=== PATIENT | male | born 1975 | race Caucasian/White ===

== ENCOUNTER 2018-03-29 18:27 | Inpatient (IN) | payer OTHER ==
--- NOTE | 2018-03-29 19:24 | HP ---
"CIWA Score - CIWA Score Nausea/Vomitin-No Nausea/No Vomiting Muscle Tremors: 4-Moderate,w/Arms Extend Anxiety: 1-Mildly Anxious Agitation: 4-Moderately Restless Paroxysmal Sweats: 1-Minimal Palms Moist Orientation: 0-Oriented Tacttile Disturbances: 0-None Auditory Disturbances: 0-None Visual Disturbances: 0-None Headache: 0-None Present CIWA-Ar Total Score: 10 Admission ROS S - HPI Chief Complaint: Here for detox alcohol. Allergies/Adverse Reactions: Allergies Allergy/AdvReac Type Severity Reaction Status Date / Time fluphenazine [From Prolixin] Allergy Severe Difficulty Verified 12/03/17 16:49 Breathing haloperidol [From Haldol] Allergy Severe Difficulty Verified 12/03/17 16:49 Breathing risperidone [From Risperdal] Allergy Severe Difficulty Verified 12/03/17 16:49 Breathing ziprasidone [From Geodon] Allergy Severe Difficulty Verified 12/03/17 16:49 Breathing History of Present Illness: Alcohol use began at age 13. Marijuana use began at age 13. Cocaine use began at age 22. K2 use began at age 38. Nicotine use at age 13. Denies hx seizures. overdose. (+) hx blackouts. Longest length of sobriety 100 days. Hx: DM - on meds, Hx: HTN - on meds. States mental health problems and is on medications. States being f/u by psychiatry at long-term. Search Terms: Alo Connell, 1975 Search Date: 03/29/2018 07:14:41 PM The Drug Utilization Report below displays all of the controlled substance prescriptions, if any, that your patient has filled in the last twelve months. The information displayed on this report is compiled from pharmacy submissions to the Department, and accurately reflects the information as submitted by the pharmacies. This report was requested by: Martina Yun | Reference #: [id number] There are no results for the search terms that you entered. Exam Limitations: No Limitations - Ebola screening Have you traveled outside of the country in the last 21 days: No (N) Have you had contact with anyone from an Ebola affected area: No Have you been sick,other than usual withdrawal symptoms: No Do you have a fever: No - Review of Systems Constitutional: Changes in sleep (Difficulty falling asleep) EENT: reports: Blurred Vision (Does nopt wear glasses), Hearing Loss (States 65 % hearing loss in (R) ear. Does not use a hearing aid.), Dental Problems ( Missing, broken, and decayed teeth. Able to chew and swallow.) Respiratory: reports: No Symptoms reported Cardiac: reports: No Symptoms Reported GI: reports: No Symptoms Reported : reports: Frequency (3-4 x/ night urination) Musculoskeletal: reports: No Symptoms Reported Integumentary: reports: No Symptoms Reported Neuro: reports: Tremors Endocrine: reports: No Symptoms Reported, Other (States has DM) Hematology: reports: No Symptoms Reported Psychiatric: reports: Judgement Intact, Orientated x3, Agitated, Anxious, Depressed (Denies thoughts of harming self or others.), other (States hx auditory hallucinations (AH) which tell him to hurt self and not to sleep. Denies AH at this time. Does not know what triggers AH. Last experienced 1 month ago and went to hospital.) Patient History - Patient Medical History Hx Anemia: No Hx Asthma: No Hx Chronic Obstructive Pulmonary Disease (COPD): No Hx Cancer: No Hx Cardiac Disorders: No Hx Congestive Heart Failure: No Hx Hypertension: Yes Hx Hypercholesterolemia: No Hx Pacemaker: No HX Cerebrovascular Accident: No Hx Seizures: No Hx Dementia: No Hx Diabetes: Yes Hx Gastrointestinal Disorders: No Hx Liver Disease: No Hx Genitourinary Disorders: No Hx Sexually Transmitted Disorders: No Hx Renal Disease (ESRD): No Hx Thyroid Disease: No Hx Human Immunodeficiency Virus (HIV): No Hx Hepatitis C: No Hx Depression: Yes Hx Suicide Attempt: No Hx Bipolar Disorder: No Hx Schizophrenia: No - Patient Surgical History Past Surgical History: Yes Hx Neurologic Surgery: No Hx Cataract Extraction: No Hx Cardiac Surgery: No Hx Lung Surgery: Yes (tracheotomy in 2007) Hx Breast Surgery: No Hx Breast Biopsy: No Hx Abdominal Surgery: No Hx Appendectomy: No Hx Cholecystectomy: No Hx Genitourinary Surgery: No Hx Orthopedic Surgery: No Anesthesia Reaction: No - PPD History Previous Implant?: Yes Documented Results: Negative w/proof Implanted On Prior [facility] Admission?: Yes Date: 12/05/17 PPD to be Administered?: No - Smoking Cessation Smoking history: Current every day smoker Have you smoked in the past 12 months: Yes Aproximately how many cigarettes per day: 10 Hx Chewing Tobacco Use: No Initiated information on smoking cessation: Yes 'Breaking Loose' booklet given: 03/29/18 - Substance & Tx. History Hx Alcohol Use: Yes Hx Substance Use: Yes Substance Use Type: Alcohol, Cocaine, Marijuana, Tranquilizers (K2) Hx Substance Use Treatment: Yes (detox, rehab) Admission Physical Exam S - Physical General Appearance: Yes: Mild Distress, Tremorous, Sweating (Facial moisture), Anxious HEENTM: Yes: EOMI, Hearing grossly Normal, KARLA, Other (Decayed and missing teeth. Dry lips and oral mucous membranes.) Respiratory: Yes: Chest Non-Tender, Lungs Clear, Normal Breath Sounds Neck: Yes: No masses,lesions,Nodules, Supple Breast: Yes: Breast Exam Deferred Cardiology: Yes: Regular Rhythm, Regular Rate, S1, S2, Other (Recent EKG at [facility] on 12/03/17 shows NSR. Will not repeat EKG. 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 NML intact, Fully Oriented, Alert, Motor Strength 5/5, Normal Mood/Affect Integumentary: Yes: Normal Color, Dry (Decreased skin turgor.), Warm Lymphatic: Yes: Within Normal Limits - Diagnostic (1) Type 2 diabetes mellitus without complications Current Visit: Yes Status: Acute Qualifiers: Diabetes mellitus medical terminologist insulin use: with fci use Qualified Code( s): E11.9 - Type 2 diabetes mellitus without complications; Z79.4 - retirement ( current) use of insulin (2) Cannabis dependence Current Visit: Yes Status: Chronic (3) HTN (hypertension) Current Visit: Yes Status: Chronic Qualifiers: Hypertension type: essential hypertension Qualified Code(s): I10 - Essential (primary) hypertension (4) Nicotine dependence Current Visit: Yes Status: Chronic Qualifiers: Nicotine product type: cigarettes Substance use status: uncomplicated Qualified Code(s): F17.210 - Nicotine dependence, cigarettes, uncomplicated (5) Poor dentition Current Visit: Yes Status: Chronic (6) Nocturia Current Visit: Yes Status: Chronic (7) Dehydration Current Visit: Yes Status: Acute Cleared for Admission [facility] - Detox or Rehab [facility] Level of Care: Medically Supervised Detox Regimen/Protocol: Librium S Breath Alcohol Content Breath Alcohol Content: 0"
[2018-03-29] MEDS ORDERED: MENTHOL/PHENOL 1 EACH UD MM PRN (19:48)
[2018-03-29] MEDS ORDERED: MAGNESIUM HYDROX 2400MG/30ML ORAL SUSPENSION 30 ML CUP PO PRN (19:48)
[2018-03-29] MEDS ORDERED: ACETAMINOPHEN 325 MG TABLET (FP) PO PRN (19:48)
[2018-03-29] MEDS ORDERED: chlordiazePOXIDE HCL 25 MG CAPSULE PO ONE (19:48)
[2018-03-29] MEDS ORDERED: LOPERAMIDE HCL 2 MG CAPSULE PO PRN (19:48)
[2018-03-29] MEDS ORDERED: MAGNESIUM CITRATE 300 ML BOTTLE PO PRN (19:48)
[2018-03-29] MEDS ORDERED: MAG HYDROX/AL HYDROX/SIMETH 30 ML UNIT-DOSE CUP PO PRN (19:48)
[2018-03-29] MEDS ORDERED: chlordiazePOXIDE HCL 25 MG CAPSULE PO PRN (19:48)
[2018-03-29] MEDS ORDERED: IBUPROFEN 400 MG TABLET (FP) PO PRN (19:48)
[2018-03-29 21:16] VITALS: BMI 23.9
[2018-03-29] MEDS: THIAMINE HCL 100 MG TABLET (FP) PO SCH (21:50)
[2018-03-29] MEDS: chlordiazePOXIDE HCL 25 MG CAPSULE PO SCH (22:00)
[2018-03-30 01:20] LABS: URINE APPEARANCE CLEAR; URINE BILIRUBIN NEGATIVE (<2.0 mg/dL); URINE COLOR LTYELLOW; URINE GLUCOSE (UA) NEGATIVE (NEGATIVE); URINE KETONE 2+ (NEGATIVE); URINE LEUK ESTERASE NEGATIVE (NEGATIVE); URINE NITRITE NEGATIVE (NEGATIVE); URINE PROTEIN NEGATIVE (NEGATIVE); URINE UROBILINOGEN NEGATIVE mg/dL (0.2-1.0)
[2018-03-30] MEDS: chlordiazePOXIDE HCL 25 MG CAPSULE PO SCH ×4 (05:03→22:22)
[2018-03-30] MEDS: NICOTINE POLACRILEX 2 MG GUM BC PRN ×2 (05:05→12:58)
[2018-03-30] MEDS: NICOTINE 14 MG/24 HOURS TOPICAL PATCH TD SCH (10:05)
[2018-03-30] MEDS: PRENATAL VITAMINS W/ FOLIC ACID TABLET (FP) PO SCH (10:05)
[2018-03-30 10:10] LABS: HEMATOCRIT 36.8 % (35.4-49); HEMOGLOBIN 12.1 GM/dL (11.7-16.9); MCH 27.9 pg (25.7-33.7); MCHC 32.9 g/dl (32.0-35.9); MEAN CELL VOLUME 84.7 fl (80-96); MEAN PLT VOLUME 7.4 fl (7.5-11.1); PLATELET COUNT 198 K/MM3 (134-434); RBC 4.35 M/mm3 (4.00-5.60); WHITE BLOOD COUNT 3.8 K/mm3 (4.0-10.0)
[2018-03-30 10:45] LABS: ALBUMIN 3.4 g/dl (3.4-5.0); ALK PHOS 108 U/L (45-117); ANION GAP 12 MMOL/L (8-16); BILIRUBIN,TOTAL 0.4 mg/dL (0.2-1); BLOOD UREA NITROGEN 11 mg/dL (7-18); CALCIUM 8.3 mg/dL (8.5-10.1); CHLORIDE 99 mmol/L (98-107); CO2 25 mmol/L (21-32); CREATININE 0.7 mg/dL (0.55-1.3); POTASSIUM 4.6 mmol/L (3.5-5.1); SGOT/AST 14 U/L (15-37); SGPT/ALT 71 U/L (13-61); SODIUM 135 mmol/L (136-145); TOT PROT 6.8 g/dl (6.4-8.2)
[2018-03-30 10:53] LABS: GLUCOSE,RANDOM 345 mg/dL (74-106)
[2018-03-30] MEDS ORDERED: INSULIN (NOVOLOG) ASPART 100 UNITS/ML 10ML VIAL ONE ×2 (11:41→17:08)
[2018-03-30] MEDS: INSULIN (LEVEMIR) 100 UNITS/ML UNITS SQ SCH ×2 (11:44→22:22)
[2018-03-30] MEDS: INSULIN SLIDING SCALE (NOVOLOG) 1 VIAL SQ SCH ×2 (11:45→17:53)
--- NOTE | 2018-03-30 12:19 | PN ---
[facility] CIWA - CIWA Score Nausea/Vomitin Muscle Tremors: 4-Moderate,w/Arms Extend Anxiety: 4-Mod. Anxious/Guarded Agitation: 3 Paroxysmal Sweats: 3 Orientation: 0-Oriented Tacttile Disturbances: 0-None Auditory Disturbances: 0-None Visual Disturbances: 0-None Headache: 0-None Present CIWA-Ar Total Score: 17 S Progress Note (SOAP) Subjective: Tremor, chills, sweating Objective: 03/30/18 12:14 Last Vital Signs Temp Pulse Resp BP Pulse Ox 97.6 F 83 18 102/59 L 03/30/18 09:07 03/30/18 09:07 03/30/18 09:07 03/30/18 09:07 Laboratory Tests 03/29/18 03/30/18 03/30/18 22:49 05:03 07:00 WBC 3.8 L RBC 4.35 Hgb 12.1 Hct 36.8 MCV 84.7 MCH 27.9 MCHC 32.9 RDW 14.0 Plt Count 198 MPV 7.4 L Sodium Potassium Chloride Carbon Dioxide Anion Gap BUN Creatinine Creat Clearance w eGFR POC Glucometer 277 Random Glucose Calcium Total Bilirubin AST ALT Alkaline Phosphatase Total Protein Albumin Urine Color Ltyellow Urine Appearance Clear Urine pH 5.0 Ur Specific [place] 1.011 Urine Protein Negative Urine Glucose (UA) Negative Urine Ketones 2+ H Urine Blood Negative Urine Nitrite Negative Urine Bilirubin Negative Urine Urobilinogen Negative Ur Leukocyte Esterase Negative RPR Titer HIV 1&2 Antibody Screen HIV P24 Antigen 03/30/18 03/30/18 03/30/18 07:00 07:00 07:00 WBC RBC Hgb Hct MCV MCH MCHC RDW Plt Count MPV Sodium 135 L Potassium 4.6 Chloride 99 Carbon Dioxide 25 Anion Gap 12 BUN 11 Creatinine 0.7 Creat Clearance w eGFR > 60 POC Glucometer Random Glucose 345 H* Calcium 8.3 L Total Bilirubin 0.4 AST 14 L ALT 71 H Alkaline Phosphatase 108 Total Protein 6.8 Albumin 3.4 Urine Color Urine Appearance Urine pH Ur Specific [place] Urine Protein Urine Glucose (UA) Urine Ketones Urine Blood Urine Nitrite Urine Bilirubin Urine Urobilinogen Ur Leukocyte Esterase RPR Titer Nonreactive HIV 1&2 Antibody Screen Negative HIV P24 Antigen Negative Labs reviewed: serum glucose 345mg/dl due to DM Assessment: 03/30/18 12:17 Withdrawal symptoms Noted with hyperglycemia Plan: Continue detox Encouraged PO water intake Hyperglycemia secondary to DMT2: resume home regimen (lantus 30 units sq bid: will give levemir instead of lantus as lantus not available; metformin 1g PO bid , start novolog insulin sliding scale with coverage. Consider decreasing levemir dosages if warranted. Do not resume lisinopril 40mg PO daily as patient has low normal b/p at this time.
--- NOTE | 2018-03-30 16:50 | CONSULT ---
[facility] Psychiatric Consult - Data Date of interview: 03/30/18 Admission source: [facility] Identifying data: Readmission to [facility] for this 42 y/o male seeking detoxification treatment, on , for alcohol, cocaine, cannabis (K2 ) dependence. Patient is single, a father of one homeless (care home), unemployed and supported on SSD benefits. Substance Abuse History: Mr Connell reports that he " uses them all ", a reference to K2 marihuana, alcohol and cocaine. As per [facility] report : Smoking history: Current every day smoker. Have you smoked in the past 12 months: Yes. Aproximately how many cigarettes per day: 10. Hx Chewing Tobacco Use: No. Initiated information on smoking cessation: Yes. 'Breaking Loose' booklet given : 03/29/18. - Substance & Tx. History. Hx Alcohol Use: Yes. Hx Substance Use : Yes. Substance Use Type: Alcohol, Cocaine, Marijuana, Tranquilizers (K2). Hx Substance Use Treatment: Yes (detox, rehab) Medical History: Diabetes mellitus, hypertension and a history of tracheostomy in 2007 (reason not disclosed). Psychiatric History: Patient endorses a history of multiple psychiatric hospitalizations since his first psychiatric meltdown at age 28 (hospitalized at a facility in [place], [place] for auditory hallucinations + paranoid delusions). Diagnosed, at the time, with Paranoid Schizophrenia and medicated with aripriprazole + cogentin. Mr Connell is known to several institutions ([facility], [facility], [facility], [facility], [facility], [facility], [facility]). Discharged, in August 2017, from [facility] on a regimen of abilify 20 mg/day + cogentin 1 mg/bid. Referred to [facility]. NO SHOW. Patient ignored his appointment. Admits to a preference for CPEP visits for medications refills at times of crisis. No reported history of suicide attempts. Physical/Sexual Abuse/Trauma History: Patient declines to discuss this domain. Additional Comment: No toxicology available. Mental Status Exam - Mental Status Exam Alert and Oriented to: Time, Place, Person Cognitive Function: Good Patient Appearance: Well Groomed Mood: Nervous, Withdrawn Affect: Blunted Patient Behavior: Fatigued, Cooperative Speech Pattern: Clear Voice Loudness: Normal Thought Process: Goal Oriented Thought Disorder: Bizarre Hallucinations: Denies Suicidal Ideation: Denies Homicidal Ideation: Denies Insight/Judgement: Poor Sleep: Well (as per self report) Appetite: Good Muscle strength/Tone: Normal Gait/Station: Normal Psychiatric Findings - Problem List ([place] 1, 2,3) (1) Alcohol dependence Current Visit: Yes Status: Acute Qualifiers: Substance use status: uncomplicated Qualified Code(s): F10.20 - Alcohol dependence, uncomplicated (2) Marijuana dependence Current Visit: Yes Status: Chronic Comment: According to self report. No toxicology available. (3) Nicotine dependence Current Visit: Yes Status: Acute Qualifiers: Nicotine product type: cigarettes Substance use status: uncomplicated Qualified Code(s): F17.210 - Nicotine dependence, cigarettes, uncomplicated (4) Substance induced mood disorder Current Visit: Yes Status: Acute (5) Paranoid schizophrenia Current Visit: Yes Status: Chronic - Initial Treatment Plan Initial Treatment Plan: Psychoeducation. Sleep hygiene. Detoxification. AA fellowship recommended. Psychotherapy (individual, supportive, cognitive/ behavioral). Patient is made aware of the option of naltrexone for relapse prevention. Verbalizes no interest for that intervention. Will resume medications as follows : abilify 10 mg po daily + cogentin 0.5 mg po bid + trazodone 50 mg po hs. Side effects/benefits of each of these drugs are discussed with the patient. Made aware, in particular, of the risk of priapism ( trazodone), anticholinergic manifestations (dry mouth, urinary retention, blurred vision, constipation) usually associated with cogentin and cardiovascular adverse events, CVA (abilify). Mr Connell declares that these medications have proven themselves effective in the management of his mental disorder (schizophrenia) and he insists for their inclusion in the current regime of treatment. 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
[2018-03-30] MEDS: metFORMIN HCL 500 MG TABLET (FP) PO SCH (17:52)
[2018-03-30] MEDS: traZODone HCL 50 MG TABLET (FP) PO SCH (22:22)
[2018-03-30] MEDS: THIAMINE HCL 100 MG TABLET (FP) PO SCH (22:22)
[2018-03-30] MEDS: BENZTROPINE MESYLATE 1 MG TABLET (FP) PO SCH (22:24)
[2018-03-31] MEDS: NICOTINE POLACRILEX 2 MG GUM BC PRN ×6 (02:21→17:31)
[2018-03-31] MEDS: chlordiazePOXIDE HCL 25 MG CAPSULE PO SCH ×3 (05:28→17:51)
[2018-03-31] MEDS: metFORMIN HCL 500 MG TABLET (FP) PO SCH ×2 (06:07→17:52)
[2018-03-31] MEDS ORDERED: INSULIN (NOVOLOG) ASPART 100 UNITS/ML 10ML VIAL ONE ×3 (07:47→16:55)
[2018-03-31] MEDS: INSULIN SLIDING SCALE (NOVOLOG) 1 VIAL SQ SCH ×3 (07:51→17:52)
--- NOTE | 2018-03-31 09:47 | PN ---
[facility] CIWA - CIWA Score Nausea/Vomitin-No Nausea/No Vomiting Muscle Tremors: None Anxiety: 4-Mod. Anxious/Guarded Agitation: 4-Moderately Restless Paroxysmal Sweats: 2 Orientation: 0-Oriented Tacttile Disturbances: 0-None Auditory Disturbances: 0-None Visual Disturbances: 0-None Headache: 0-None Present CIWA-Ar Total Score: 10 [facility] Progress Note (SOAP) Subjective: PATIENT C/O ANXIETY, RESTLESSNESS AND SWEATING. Objective: 03/31/18 09:46 Vital Signs Temperature 97.1 F L 03/31/18 09:04 Pulse Rate 116 H 03/31/18 09:04 Respiratory Rate 20 03/31/18 09:04 Blood Pressure 121/76 03/31/18 09:04 O2 Sat by Pulse Oximetry (%) Laboratory Tests 03/29/18 03/30/18 03/30/18 22:49 05:03 07:00 WBC 3.8 L RBC 4.35 Hgb 12.1 Hct 36.8 MCV 84.7 MCH 27.9 MCHC 32.9 RDW 14.0 Plt Count 198 MPV 7.4 L Sodium Potassium Chloride Carbon Dioxide Anion Gap BUN Creatinine Creat Clearance w eGFR POC Glucometer 277 Random Glucose Calcium Total Bilirubin AST ALT Alkaline Phosphatase Total Protein Albumin Urine Color Ltyellow Urine Appearance Clear Urine pH 5.0 Ur Specific [place] 1.011 Urine Protein Negative Urine Glucose (UA) Negative Urine Ketones 2+ H Urine Blood Negative Urine Nitrite Negative Urine Bilirubin Negative Urine Urobilinogen Negative Ur Leukocyte Esterase Negative RPR Titer HIV 1&2 Antibody Screen HIV P24 Antigen 03/30/18 03/30/18 03/30/18 07:00 07:00 07:00 WBC RBC Hgb Hct MCV MCH MCHC RDW Plt Count MPV Sodium 135 L Potassium 4.6 Chloride 99 Carbon Dioxide 25 Anion Gap 12 BUN 11 Creatinine 0.7 Creat Clearance w eGFR > 60 POC Glucometer Random Glucose 345 H* Calcium 8.3 L Total Bilirubin 0.4 AST 14 L ALT 71 H Alkaline Phosphatase 108 Total Protein 6.8 Albumin 3.4 Urine Color Urine Appearance Urine pH Ur Specific [place] Urine Protein Urine Glucose (UA) Urine Ketones Urine Blood Urine Nitrite Urine Bilirubin Urine Urobilinogen Ur Leukocyte Esterase RPR Titer Nonreactive HIV 1&2 Antibody Screen Negative HIV P24 Antigen Negative 03/30/18 03/30/1818 11:17 16:11 21:11 WBC RBC Hgb Hct MCV MCH MCHC RDW Plt Count MPV Sodium Potassium Chloride Carbon Dioxide Anion Gap BUN Creatinine Creat Clearance w eGFR POC Glucometer 468 362 265 Random Glucose Calcium Total Bilirubin AST ALT Alkaline Phosphatase Total Protein Albumin Urine Color Urine Appearance Urine pH Ur Specific [place] Urine Protein Urine Glucose (UA) Urine Ketones Urine Blood Urine Nitrite Urine Bilirubin Urine Urobilinogen Ur Leukocyte Esterase RPR Titer HIV 1&2 Antibody Screen HIV P24 Antigen 03/31/18 05:29 WBC RBC Hgb Hct MCV MCH MCHC RDW Plt Count MPV Sodium Potassium Chloride Carbon Dioxide Anion Gap BUN Creatinine Creat Clearance w eGFR POC Glucometer 313 Random Glucose Calcium Total Bilirubin AST ALT Alkaline Phosphatase Total Protein Albumin Urine Color Urine Appearance Urine pH Ur Specific [place] Urine Protein Urine Glucose (UA) Urine Ketones Urine Blood Urine Nitrite Urine Bilirubin Urine Urobilinogen Ur Leukocyte Esterase RPR Titer HIV 1&2 Antibody Screen HIV P24 Antigen PE: SKIN WARM AND MOIST CAR S1S2 RESP CTA BL EXT FULL ROM, NO EDEMA ALERT AND ORIENTED X 3 Assessment: 03/31/18 09:47 WITHDRAWAL SX Plan: DETOX PER PROTOCOL ENCOURAGE ORAL FLUIDS CONTINUE TO MONITOR CLINICALLY
[2018-03-31] MEDS: BENZTROPINE MESYLATE 1 MG TABLET (FP) PO SCH ×2 (10:01→22:15)
[2018-03-31] MEDS: ARIPiprazole 10 MG TABLET PO SCH (10:01)
[2018-03-31] MEDS: PRENATAL VITAMINS W/ FOLIC ACID TABLET (FP) PO SCH (10:01)
[2018-03-31] MEDS: NICOTINE 14 MG/24 HOURS TOPICAL PATCH TD SCH (10:02)
[2018-03-31] MEDS: INSULIN (LEVEMIR) 100 UNITS/ML UNITS SQ SCH ×2 (10:38→22:37)
[2018-03-31] MEDS: chlordiazePOXIDE 5 MG CAPSULE PO SCH (22:15)
[2018-03-31] MEDS: THIAMINE HCL 100 MG TABLET (FP) PO SCH (22:15)
[2018-03-31] MEDS: traZODone HCL 50 MG TABLET (FP) PO SCH (22:16)
[2018-03-31] MEDS: MELATONIN 5 MG TABLETS PO PRN (22:18)
[2018-04-01] MEDS: NICOTINE POLACRILEX 2 MG GUM BC PRN ×3 (04:15→20:20)
[2018-04-01] MEDS: chlordiazePOXIDE 5 MG CAPSULE PO SCH ×3 (05:12→16:44)
[2018-04-01] MEDS: metFORMIN HCL 500 MG TABLET (FP) PO SCH ×2 (06:05→16:44)
[2018-04-01] MEDS: INSULIN SLIDING SCALE (NOVOLOG) 1 VIAL SQ SCH ×3 (06:58→16:45)
--- NOTE | 2018-04-01 09:57 | PN ---
[facility] Progress Note Note: Patient continues with detox regimen. States he feels well. Complain of mild anxiety. Laboratory Tests 03/29/18 03/30/18 03/30/18 22:49 05:03 07:00 WBC 3.8 L RBC 4.35 Hgb 12.1 Hct 36.8 MCV 84.7 MCH 27.9 MCHC 32.9 RDW 14.0 Plt Count 198 MPV 7.4 L Sodium Potassium Chloride Carbon Dioxide Anion Gap BUN Creatinine Creat Clearance w eGFR POC Glucometer 277 Random Glucose Calcium Total Bilirubin AST ALT Alkaline Phosphatase Total Protein Albumin Urine Color Ltyellow Urine Appearance Clear Urine pH 5.0 Ur Specific [place] 1.011 Urine Protein Negative Urine Glucose (UA) Negative Urine Ketones 2+ H Urine Blood Negative Urine Nitrite Negative Urine Bilirubin Negative Urine Urobilinogen Negative Ur Leukocyte Esterase Negative RPR Titer HIV 1&2 Antibody Screen HIV P24 Antigen 03/30/18 03/30/18 03/30/18 07:00 07:00 07:00 WBC RBC Hgb Hct MCV MCH MCHC RDW Plt Count MPV Sodium 135 L Potassium 4.6 Chloride 99 Carbon Dioxide 25 Anion Gap 12 BUN 11 Creatinine 0.7 Creat Clearance w eGFR > 60 POC Glucometer Random Glucose 345 H* Calcium 8.3 L Total Bilirubin 0.4 AST 14 L ALT 71 H Alkaline Phosphatase 108 Total Protein 6.8 Albumin 3.4 Urine Color Urine Appearance Urine pH Ur Specific [place] Urine Protein Urine Glucose (UA) Urine Ketones Urine Blood Urine Nitrite Urine Bilirubin Urine Urobilinogen Ur Leukocyte Esterase RPR Titer Nonreactive HIV 1&2 Antibody Screen Negative HIV P24 Antigen Negative 03/30/18 03/30/18 03/30/18 11:17 16:11 21:11 WBC RBC Hgb Hct MCV MCH MCHC RDW Plt Count MPV Sodium Potassium Chloride Carbon Dioxide Anion Gap BUN Creatinine Creat Clearance w eGFR POC Glucometer 468 362 265 Random Glucose Calcium Total Bilirubin AST ALT Alkaline Phosphatase Total Protein Albumin Urine Color Urine Appearance Urine pH Ur Specific [place] Urine Protein Urine Glucose (UA) Urine Ketones Urine Blood Urine Nitrite Urine Bilirubin Urine Urobilinogen Ur Leukocyte Esterase RPR Titer HIV 1&2 Antibody Screen HIV P24 Antigen 03/31/18 03/31/18 03/31/18 05:29 10:36 16:40 WBC RBC Hgb Hct MCV MCH MCHC RDW Plt Count MPV Sodium Potassium Chloride Carbon Dioxide Anion Gap BUN Creatinine Creat Clearance w eGFR POC Glucometer 313 356 268 Random Glucose Calcium Total Bilirubin AST ALT Alkaline Phosphatase Total Protein Albumin Urine Color Urine Appearance Urine pH Ur Specific [place] Urine Protein Urine Glucose (UA) Urine Ketones Urine Blood Urine Nitrite Urine Bilirubin Urine Urobilinogen Ur Leukocyte Esterase RPR Titer HIV 1&2 Antibody Screen HIV P24 Antigen 03/31/18 04/01/18 20:52 05:11 WBC RBC Hgb Hct MCV MCH MCHC RDW Plt Count MPV Sodium Potassium Chloride Carbon Dioxide Anion Gap BUN Creatinine Creat Clearance w eGFR POC Glucometer 376 217 Random Glucose Calcium Total Bilirubin AST ALT Alkaline Phosphatase Total Protein Albumin Urine Color Urine Appearance Urine pH Ur Specific [place] Urine Protein Urine Glucose (UA) Urine Ketones Urine Blood Urine Nitrite Urine Bilirubin Urine Urobilinogen Ur Leukocyte Esterase RPR Titer HIV 1&2 Antibody Screen HIV P24 Antigen PE: ALERT AND ORIENTED X 3 SKIN WARM AND DRY AMB AD SHERRI EXT FULL ROM, NO EDEMA A/P: WITHDRAWAL SX CONTINUE DETOX REGIMEN ENCOURAGE ORAL FLUIDS CONTINUE TO MONITOR CLINICALLY
[2018-04-01] MEDS: PRENATAL VITAMINS W/ FOLIC ACID TABLET (FP) PO SCH (10:03)
[2018-04-01] MEDS: BENZTROPINE MESYLATE 1 MG TABLET (FP) PO SCH ×2 (10:03→22:28)
[2018-04-01] MEDS: ARIPiprazole 10 MG TABLET PO SCH (10:04)
[2018-04-01] MEDS: NICOTINE 14 MG/24 HOURS TOPICAL PATCH TD SCH (10:04)
[2018-04-01] MEDS: INSULIN (LEVEMIR) 100 UNITS/ML UNITS SQ SCH ×2 (10:08→22:32)
[2018-04-01] MEDS ORDERED: INSULIN (NOVOLOG) ASPART 100 UNITS/ML 10ML VIAL ONE ×2 (11:28→16:42)
[2018-04-01] MEDS: chlordiazePOXIDE HCL 10 MG CAPSULE PO SCH (22:28)
[2018-04-01] MEDS: traZODone HCL 50 MG TABLET (FP) PO SCH (22:28)
[2018-04-01] MEDS: THIAMINE HCL 100 MG TABLET (FP) PO SCH (22:28)
[2018-04-01] MEDS: MELATONIN 5 MG TABLETS PO PRN (22:29)
[2018-04-02] MEDS: NICOTINE POLACRILEX 2 MG GUM BC PRN ×5 (01:38→22:00)
[2018-04-02] MEDS: chlordiazePOXIDE HCL 10 MG CAPSULE PO SCH ×3 (05:11→17:50)
[2018-04-02] MEDS ORDERED: INSULIN SLIDING SCALE (NOVOLOG) 1 VIAL SQ ONE (06:31)
[2018-04-02] MEDS: INSULIN SLIDING SCALE (NOVOLOG) 1 VIAL SQ SCH ×3 (07:53→17:06)
[2018-04-02] MEDS: metFORMIN HCL 500 MG TABLET (FP) PO SCH ×2 (07:53→17:05)
[2018-04-02] MEDS: BENZTROPINE MESYLATE 1 MG TABLET (FP) PO SCH ×2 (09:52→21:24)
[2018-04-02] MEDS: ARIPiprazole 10 MG TABLET PO SCH (09:52)
[2018-04-02] MEDS: INSULIN (LEVEMIR) 100 UNITS/ML UNITS SQ SCH ×2 (09:54→21:21)
[2018-04-02] MEDS: NICOTINE 14 MG/24 HOURS TOPICAL PATCH TD SCH (09:54)
[2018-04-02] MEDS: PRENATAL VITAMINS W/ FOLIC ACID TABLET (FP) PO SCH (09:55)
--- NOTE | 2018-04-02 10:21 | DS ---
[facility] Detox Discharge Summary Admission Date: 03/29/18 Discharge Date: 04/02/18 - History Present History: Alcohol Dependence, Cannabis Dependence Additional Comments: Patient to follow up with primary care physician after discharge. - Physical Exam Results Vital Signs: Vital Signs Temperature 96.9 F L 04/02/18 09:09 Pulse Rate 111 H 04/02/18 09:09 Respiratory Rate 20 04/02/18 09:09 Blood Pressure 130/81 04/02/18 09:09 O2 Sat by Pulse Oximetry (%) Pertinent Admission Physical Exam Findings: Vital Signs Temperature 96.9 F L 04/02/18 09:09 Pulse Rate 111 H 04/02/18 09:09 Respiratory Rate 20 04/02/18 09:09 Blood Pressure 130/81 04/02/18 09:09 O2 Sat by Pulse Oximetry (%) Laboratory Last Values WBC 3.8 K/mm3 (4.0-10.0) L 03/30/18 07:00 RBC 4.35 M/mm3 (4.00-5.60) 03/30/18 07:00 Hgb 12.1 GM/dL (11.7-16.9) 03/30/18 07:00 Hct 36.8 % (35.4-49) 03/30/18 07:00 MCV 84.7 fl (80-96) 03/30/18 07:00 MCH 27.9 pg (25.7-33.7) 03/30/18 07:00 MCHC 32.9 g/dl (32.0-35.9) 03/30/18 07:00 RDW 14.0 % (11.9-15.9) 03/30/18 07:00 Plt Count 198 K/MM3 (134-434) 03/30/18 07:00 MPV 7.4 fl (7.5-11.1) L 03/30/18 07:00 Sodium 135 mmol/L (136-145) L 03/30/18 07:00 Potassium 4.6 mmol/L (3.5-5.1) 03/30/18 07:00 Chloride 99 mmol/L (98-107) 03/30/18 07:00 Carbon Dioxide 25 mmol/L (21-32) 03/30/18 07:00 Anion Gap 12 MMOL/L (8-16) 03/30/18 07:00 BUN 11 mg/dL (7-18) 03/30/18 07:00 Creatinine 0.7 mg/dL (0.55-1.3) 03/30/18 07:00 Creat Clearance w eGFR > 60 (>60) 03/30/18 07:00 POC Glucometer 389 UNITS (80-120) 04/02/18 05:10 Random Glucose 345 mg/dL (74-106) H* 03/30/18 07:00 Calcium 8.3 mg/dL (8.5-10.1) L 03/30/18 07:00 Total Bilirubin 0.4 mg/dL (0.2-1) 03/30/18 07:00 AST 14 U/L (15-37) L 03/30/18 07:00 ALT 71 U/L (13-61) H 03/30/18 07:00 Alkaline Phosphatase 108 U/L (45-117) 03/30/18 07:00 Total Protein 6.8 g/dl (6.4-8.2) 03/30/18 07:00 Albumin 3.4 g/dl (3.4-5.0) 03/30/18 07:00 Urine Color Ltyellow 03/29/18 22:49 Urine Appearance Clear 03/29/18 22:49 Urine pH 5.0 (5.0-8.0) 03/29/18 22:49 Ur Specific [place] 1.011 (1.010-1.035) 03/29/18 22:49 Urine Protein Negative (NEGATIVE) 03/29/18 22:49 Urine Glucose (UA) Negative (NEGATIVE) 03/29/18 22:49 Urine Ketones 2+ (NEGATIVE) H 03/29/18 22:49 Urine Blood Negative (NEGATIVE) 03/29/18 22:49 Urine Nitrite Negative (NEGATIVE) 03/29/18 22:49 Urine Bilirubin Negative (<2.0 mg/dL) 03/29/18 22:49 Urine Urobilinogen Negative mg/dL (0.2-1.0) 03/29/18 22:49 Ur Leukocyte Esterase Negative (NEGATIVE) 03/29/18 22:49 RPR Titer Nonreactive (NONREACTIVE) 03/30/18 07:00 HIV 1&2 Antibody Screen Negative 03/30/18 07:00 HIV P24 Antigen Negative 03/30/18 07:00 - Treatment Hospital Course: Detox Protocol Followed, Detoxed Safely, Responded well, Discharged Condition Good, Rehab Referral Accepted Patient has Accepted a Rehab Referral to: [facility] - Medication Discharge Medications: Ambulatory Orders Aripiprazole [Abilify -] 20 mg PO DAILY 12/03/17 Benztropine Mesylate [Cogentin -] 0.5 mg PO BID 12/03/17 traZODone HCL [Trazodone HCl] 50 mg PO DAILY 12/03/17 Insulin Glargine,Hum.rec.anlog [Lantus Solostar PEN -] 30 units SQ BID #1 vial 04/01/18 Lisinopril [Prinivil -] 40 mg PO DAILY #30 tablet 04/01/18 metFORMIN HCL [Metformin HCl] 1,000 mg PO BID #60 tablet 04/01/18 - Diagnosis (1) Nicotine dependence Current Visit: Yes Status: Acute Qualifiers: Nicotine product type: cigarettes Substance use status: uncomplicated Qualified Code(s): F17.210 - Nicotine dependence, cigarettes, uncomplicated (2) Type 2 diabetes mellitus with hyperglycemia Current Visit: Yes Status: Chronic Qualifiers: Diabetes mellitus long-term insulin use: with long-term use Qualified Code( s): E11.65 - Type 2 diabetes mellitus with hyperglycemia; Z79.4 - intermediate ( current) use of insulin (3) HTN (hypertension) Current Visit: Yes Status: Chronic Qualifiers: Hypertension type: essential hypertension Qualified Code(s): I10 - Essential (primary) hypertension (4) Marijuana dependence Current Visit: Yes Status: Chronic - AMA Did Patient Leave Against Medical Advice: No
[2018-04-02] MEDS ORDERED: INSULIN (NOVOLOG) ASPART 100 UNITS/ML 10ML VIAL ONE (17:05)
[2018-04-02] MEDS: traZODone HCL 50 MG TABLET (FP) PO SCH (21:24)
[2018-04-02] MEDS: MELATONIN 5 MG TABLETS PO PRN (21:25)
[2018-04-02] MEDS: THIAMINE HCL 100 MG TABLET (FP) PO SCH (21:25)
[2018-04-03] MEDS ORDERED: INSULIN (NOVOLOG) ASPART 100 UNITS/ML 10ML VIAL ONE ×3 (06:37→16:44)
[2018-04-03] MEDS: INSULIN SLIDING SCALE (NOVOLOG) 1 VIAL SQ SCH ×3 (06:37→16:45)
[2018-04-03] MEDS: metFORMIN HCL 500 MG TABLET (FP) PO SCH ×2 (06:38→16:44)
[2018-04-03] MEDS: BENZTROPINE MESYLATE 1 MG TABLET (FP) PO SCH ×2 (09:38→21:16)
[2018-04-03] MEDS: PRENATAL VITAMINS W/ FOLIC ACID TABLET (FP) PO SCH (09:38)
[2018-04-03] MEDS: ARIPiprazole 10 MG TABLET PO SCH (09:38)
[2018-04-03] MEDS: NICOTINE 14 MG/24 HOURS TOPICAL PATCH TD SCH (09:39)
[2018-04-03] MEDS: INSULIN (LEVEMIR) 100 UNITS/ML UNITS SQ SCH ×2 (09:39→21:18)
--- NOTE | 2018-04-03 14:00 | HP ---
Psychiatrist Admission - Data Date of interview: 04/03/18 Admission source: 3N Identifying data: This is the second [facility] admission for this 42 years old male, father of a 20 years old son, unemployed on SSD, homeless staying at [facility] Medical History: Significant for hypertension, type 2 diabetes mellitus. Smokes cigarettes 10 cigarettes daily Psychiatric History: Reports that his first psychiatric contact was at age 28 when he was admitted to a facility in [place], [place] for auditory hallucinations and paranoid delusions. He was diagnosed with Schizophrenia and prescribed medications. Report multiple subsequent psychiatric admissions to several institutions including but not limited to [facility] in [facility], [place] and most recently in January 2018 to [facility] for CAH to kill himself. He was administered an injection of Abilify Maintena while there and discharged on [place], Cogentin and Trazadone. [facility] on [facility]. Told freelance copywriter that it was difficult to see that psychiatrist and missed his injection of Abilify last month. He saw Dr Roque on 03/30/18 while in detox and he was prescribed Abilify 10 mg po daily, Cogentin 0.5 mg po BID and Trazadone 50 mg po HS. Requests that Trazadone dosage be increased since he is still sleepy poorly on it. Denies history of previous suicidal attempt. At present, denies experiencing psychotic, manic or depressive symptoms, S/H ideations Physical/Sexual Abuse/Trauma History: Denies history of emotional, physical or sexual abuse as well as DV relationship Additional Comment: Reports history of multiple previous arrests including 2 DUI. Denies being on probation currently Vital Signs: Vital Signs - 24 hr 04/03/18 04/03/18 04/03/18 00:32 03:14 06:52 Temperature 98.1 F Pulse Rate 86 Respiratory 18 18 18 Rate Blood Pressure 136/81 04/03/18 10:00 Temperature Pulse Rate 101 H Respiratory 20 Rate Blood Pressure 126/75 Allergies/Adverse Reactions: Allergies Allergy/AdvReac Type Severity Reaction Status Date / Time fluphenazine [From Prolixin] Allergy Severe Difficulty Verified 12/03/17 16:49 Breathing haloperidol [From Haldol] Allergy Severe Difficulty Verified 12/03/17 16:49 Breathing risperidone [From Risperdal] Allergy Severe Difficulty Verified 12/03/17 16:49 Breathing ziprasidone [From Geodon] Allergy Severe Difficulty Verified 12/03/17 16:49 Breathing Date of last physical exam: 03/29/18 Concur with the findings of this exam: Yes - Substance Abuse/Tx History Hx Alcohol Use: Yes Hx Substance Use: Yes Substance Use Type: Alcohol (Started drinking alcohol at age 13, consumes 12x 24oz daily. Last drank on 03/29/18), Marijuana (Started smoking marijuana at age 13, consumes one jointbdaily. Lst smoked on 03/29/18) Hx Substance Use Treatment: Yes (One previous inpt rehab @ [facility] in November 2017) Mental Status Exam - Mental Status Exam Alert and Oriented to: Time, Place, Person Cognitive Function: Fair Patient Appearance: Disheveled Mood: Hopeful, Euthymic Patient Behavior: Cooperative Speech Pattern: Clear Voice Loudness: Normal Thought Process: Intact Thought Disorder: Not Present Hallucinations: Denies (Reports that back in January ) Suicidal Ideation: Denies Homicidal Ideation: Denies Insight/Judgement: Fair Sleep: Poorly Appetite: Good Muscle strength/Tone: Normal Gait/Station: Normal Psychiatric Findings - Problem List ([place] 1, 2,3) (1) Alcohol dependence Current Visit: Yes Status: Acute Qualifiers: Substance use status: uncomplicated Qualified Code(s): F10.20 - Alcohol dependence, uncomplicated (2) Cannabis dependence Current Visit: Yes Status: Chronic (3) Nicotine dependence Current Visit: Yes Status: Chronic Qualifiers: Nicotine product type: cigarettes Substance use status: uncomplicated Qualified Code(s): F17.210 - Nicotine dependence, cigarettes, uncomplicated (4) Paranoid schizophrenia Current Visit: Yes Status: Chronic (5) Substance-induced sleep disorder Current Visit: Yes Status: Acute (6) Type 2 diabetes mellitus without complications Current Visit: Yes Status: Chronic Qualifiers: Diabetes mellitus fci insulin use: with fci use Qualified Code( s): E11.9 - Type 2 diabetes mellitus without complications; Z79.4 - terminal block assembler ( current) use of insulin (7) HTN (hypertension) Current Visit: Yes Status: Chronic Qualifiers: Hypertension type: essential hypertension Qualified Code(s): I10 - Essential (primary) hypertension - Initial Treatment Plan Initial Treatment Plan: 1) Discontinue Trazadone as currently ordered. 2) Start Trazadone 100 mg po HS and Abilify maintena tomorrow. 3) Continue Cogentin 0.5 mg po BID and Abilify 10 mg po daily for 2 weeks. 3) Monitor progress
[2018-04-03] MEDS ORDERED: FLU VACCINE QUAD 60 MCG/0.5 ML (MDV 18-19) IM ONE (15:40)
[2018-04-03] MEDS: traZODone HCL 100 MG TABLET (FP) PO SCH (21:16)
[2018-04-03] MEDS: THIAMINE HCL 100 MG TABLET (FP) PO SCH (21:16)
[2018-04-03] MEDS: NICOTINE POLACRILEX 2 MG GUM BC PRN (21:19)
[2018-04-04] MEDS: NICOTINE POLACRILEX 2 MG GUM BC PRN ×3 (03:45→21:19)
[2018-04-04] MEDS: metFORMIN HCL 500 MG TABLET (FP) PO SCH ×2 (06:59→16:43)
[2018-04-04] MEDS ORDERED: INSULIN (NOVOLOG) ASPART 100 UNITS/ML 10ML VIAL ONE ×3 (07:04→16:45)
[2018-04-04] MEDS: INSULIN SLIDING SCALE (NOVOLOG) 1 VIAL SQ SCH ×3 (07:06→16:46)
[2018-04-04] MEDS: PRENATAL VITAMINS W/ FOLIC ACID TABLET (FP) PO SCH (10:00)
[2018-04-04] MEDS ORDERED: ARIPIPRAZOLE (ABILIFY MAINTENA) 400 MG DISPENSE SYRINGE IM ONE (10:00)
[2018-04-04] MEDS ORDERED: ARIPiprazole 10 MG TABLET PO SCH (10:00)
[2018-04-04] MEDS: NICOTINE 14 MG/24 HOURS TOPICAL PATCH TD SCH (10:00)
[2018-04-04] MEDS: BENZTROPINE MESYLATE 1 MG TABLET (FP) PO SCH ×2 (10:01→21:17)
[2018-04-04] MEDS: INSULIN (LEVEMIR) 100 UNITS/ML UNITS SQ SCH ×2 (10:03→21:16)
[2018-04-04] MEDS: THIAMINE HCL 100 MG TABLET (FP) PO SCH (21:17)
[2018-04-04] MEDS: traZODone HCL 100 MG TABLET (FP) PO SCH (21:17)
[2018-04-04] MEDS: MELATONIN 5 MG TABLETS PO PRN (21:17)
[2018-04-05] MEDS: NICOTINE POLACRILEX 2 MG GUM BC PRN (02:16)
[2018-04-05 06:33] VITALS: BP 126/76; PULSE 115; TEMP 98
[2018-04-05] MEDS: metFORMIN HCL 500 MG TABLET (FP) PO SCH (06:39)
[2018-04-05] MEDS ORDERED: INSULIN (NOVOLOG) ASPART 100 UNITS/ML 10ML VIAL ONE (06:44)
[2018-04-05] MEDS: INSULIN SLIDING SCALE (NOVOLOG) 1 VIAL SQ SCH (07:52)
--- NOTE | 2018-04-05 09:35 | PN ---
Psychiatric Progress Note Vital Signs: Vital Signs Period Temp Pulse Resp BP Sys/Chandler Pulse Ox Last 24 Hr 98.0 F 115 16-18 126/76 Date of Session: 04/05/18 Chief Complaint:: AMA Discharge Note HPI: Patient addressing alcohol and cannabis dependence comorbid with nicotine dependence, Paranoid Schizophrenia and Substance-Induced Sleep Disorder ROS: HTN, Type 2 DM Current Medications: Active Medications Generic Name Dose Route Start Last Admin Trade Name Freq PRN Reason Stop Dose Admin Acetaminophen 650 mg 03/29/18 19:48 Tylenol - PO Q4H PRN FEVER Al Hydroxide/Mg Hydroxide 30 ml 03/29/18 19:48 Mylanta Oral Suspension - PO Q6H PRN DYSPEPSIA Aripiprazole 20 mg 04/05/18 10:00 Abilify PO DAILY SO Benztropine Mesylate 0.5 mg 03/30/18 22:00 04/04/18 21:17 Cogentin - PO 0.5 mg BID SO Administration Eucalyptus/Menthol/Phenol/Sorbitol 1 each 03/29/18 19:48 Cepastat Lozenge - MM Q4H PRN SORE THROAT Ibuprofen 400 mg 03/29/18 19:48 Motrin - PO Q6H PRN PAIN LEVEL 4-6 Insulin Aspart 1 vial 03/30/18 11:30 04/05/18 07:52 Novolog Vial Sliding Scale - SQ 8 units TIDAC SO Administration Protocol Insulin Detemir 30 units 03/30/18 11:00 04/04/18 21:16 Levemir Vial SQ 30 units BID SO Administration Loperamide HCl 4 mg 03/29/18 19:48 Imodium - PO Q6H PRN DIARRHEA Magnesium Citrate 300 ml 03/29/18 19:48 Citroma - PO Q48H PRN CONSTIPATION Magnesium Hydroxide 30 ml 03/29/18 19:48 Milk Of Magnesia - PO DAILY PRN CONSTIPATION Melatonin 5 mg 03/29/18 22:00 04/04/18 21:17 Melatonin PO 5 mg HS PRN Administration INSOMNIA Metformin HCl 1,000 mg 03/30/18 16:30 04/05/18 06:39 Glucophage - PO 1,000 mg BID@0700,1630 SO Administration Nicotine 14 mg 03/30/18 10:00 04/04/18 10:00 Nicoderm Patch - TD 14 mg DAILY SO Administration Nicotine Polacrilex 2 mg 03/29/18 19:48 04/05/18 02:16 Nicorette Gum - BC 2 mg Q2H PRN Administration NICOTINE REPLACEMENT RX Multivit/Folic Acid/Iron 1 tab 03/30/18 10:00 04/04/18 10:00 Vitamins (Sjr) - PO 1 tab DAILY SO Administration Thiamine HCl 100 mg 03/29/18 22:00 04/04/18 21:17 Vitamin B1 - PO 100 mg HS SO Administration Trazodone HCl 100 mg 04/03/18 22:00 04/04/18 21:17 Desyrel - PO 100 mg HS SO Administration Current Side Effect: No Lab tests ordered: Yes Lab tests reviewed: Yes Provider note:: Patient wants to leave against medical advice stating:" I cannot do this program, I feel locked in" Patient is determined to leave despite encouragement to stay and complete this program. He told marketing underwriter not to electronically transferred scripts for his psychotropic medications to the pharmacy because he has enough supply of medications till he [facility]. He was administered Abilify Maintena 400 mg IM yesterday(He missed that injection last month). His next Abilify injection is due on May 02, 2018. He denies experiencing psychotic, manic or depressive symptoms, S/H ideations. he is stable for leaving against medical advice. Total face to face time:: 25 Mental Status Exam - Mental Status Exam Alert and Oriented to: Time, Place, Person Cognitive Function: Fair Patient Appearance: Well Groomed Mood: Hopeful, Euthymic Affect: Appropriate Patient Behavior: Cooperative Speech Pattern: Clear Voice Loudness: Normal Thought Process: Intact Thought Disorder: Not Present Hallucinations: Denies Suicidal Ideation: Denies Homicidal Ideation: Denies Insight/Judgement: Fair Sleep: Fair Appetite: Good Muscle strength/Tone: Normal Gait/Station: Normal Psychiatric Treatment Plan - Problem List (1) Alcohol dependence Current Visit: Yes Qualifiers: Substance use status: uncomplicated Qualified Code(s): F10.20 - Alcohol dependence, uncomplicated (2) Cannabis dependence Current Visit: Yes (3) Nicotine dependence Current Visit: Yes Qualifiers: Nicotine product type: cigarettes Substance use status: uncomplicated Qualified Code(s): F17.210 - Nicotine dependence, cigarettes, uncomplicated (4) Paranoid schizophrenia Current Visit: Yes (5) Substance-induced sleep disorder Current Visit: Yes (6) Type 2 diabetes mellitus without complications Current Visit: Yes Qualifiers: Diabetes mellitus mcc insulin use: with manager intermediate use Qualified Code( s): E11.9 - Type 2 diabetes mellitus without complications; Z79.4 - long-term ( current) use of insulin (7) HTN (hypertension) Current Visit: Yes Qualifiers: Hypertension type: essential hypertension Qualified Code(s): I10 - Essential (primary) hypertension Initial treatment plan: Patient is leaving against medical advice and returning back to [facility] where he gets psychiatric services on site
[2018-04-05] MEDS: PRENATAL VITAMINS W/ FOLIC ACID TABLET (FP) PO SCH (09:36)
[2018-04-05] MEDS: BENZTROPINE MESYLATE 1 MG TABLET (FP) PO SCH (09:36)
[2018-04-05] MEDS: NICOTINE 14 MG/24 HOURS TOPICAL PATCH TD SCH (09:36)
[2018-04-05] MEDS: INSULIN (LEVEMIR) 100 UNITS/ML UNITS SQ SCH (09:37)
--- NOTE | 2018-04-05 09:53 | HP ---
[facility] Rehab Assess/Revision - Admission History [facility] Date of Admission to Rehab: 04/02/18 - Vital signs Vital Signs: Vital Signs Period Temp Pulse Resp BP Sys/Chandler Pulse Ox Last 24 Hr 98.0 F 115 16-18 126/76 - Findings Detox History & Physical reviewed: Yes Concur with findings: Yes Inpatient Rehab Admission - Initial Determination Are CD services needed?: Yes Free of communicable disease: Yes Not in need of hospitalization: Yes - Rehab Admission Criteria Patient is meeting Inpatient Rehab admission criteria:: Yes
[2018-04-05] MEDS ORDERED: ARIPiprazole 10 MG TABLET PO SCH (10:00)
== END 2018-04-05 10:30 | disposition left against medical advice (07) | DRG 894 ==
LOC: YASAS 18:27 → Y3N 20:28 → Y5N 04-02 12:24
PROVIDERS: ATTEND Psychiatry & Neurology Psychiatry
PROC: HZ42ZZZ Group Counseling for Substance Abuse Treatment, Cognitive-Behavioral (ICD-10-PCS; principal; 2018-03-29)
DX: F10.20 Alcohol dependence, uncomplicated (principal); F19.282 Other psychoactive substance dependence with psychoactive substance-induced sleep disorder; F20.0 Paranoid schizophrenia; F12.20 Cannabis dependence, uncomplicated; F17.210 Nicotine dependence, cigarettes, uncomplicated; I10 Essential (primary) hypertension; E11.9 Type 2 diabetes mellitus without complications; Z79.4 Long term (current) use of insulin; Z88.8 Allergy status to other drugs, medicaments and biological substances; Z59.0 Homelessness
CPT/HCPCS: 36415; 80053; 81003; 82962; 85027; 86593; 87389; 90688; G0008

== ENCOUNTER 2018-08-13 11:37 | Inpatient (IN) | payer MEDICARE, OTHER ==
[2018-08-13 13:06] VITALS: BMI 25.1
--- NOTE | 2018-08-13 13:11 | HP ---
CIWA Score Nausea/Vomitin-Mild Nausea/No Vomiting Muscle Tremors: 4-Moderate,w/Arms Extend Anxiety: 4-Mod. Anxious/Guarded Agitation: 2 Paroxysmal Sweats: 1-Minimal Palms Moist Orientation: 1-Uncertain about Date Tacttile Disturbances: 1-Very Mild Itch/Numbness Auditory Disturbances: 1-Very Mild Visual Disturbances: 1-Very Mild Sensitivity Headache: 2-Mild CIWA-Ar Total Score: 18 - Admission Criteria OASAS Guidelines: Admission for Medically Managed Detox: Requires at least one of the followin. CIWA greater than 12 2. Seizures within the past 24 hours 3. Delirium tremens within the past 24 hours 4. Hallucinations within the past 24 hours 5. Acute intervention needed for co occurring medical disorder 6. Acute intervention needed for co occurring psychiatric disorder 7. Severe withdrawal that cannot be handled at a lower level of care (continued vomiting, continued diarrhea, abnormal vital signs) requiring intravenous medication and/or fluids 8. Patient presents the following: CIWA greater than 12 Admission Criteria Met: Admission criteria met Admission ROS BHS - HPI Chief Complaint: I need help - it's so bad I can't even remember what happens to me Allergies/Adverse Reactions: Allergies Allergy/AdvReac Type Severity Reaction Status Date / Time fluphenazine [From Prolixin] AdvReac Severe Verified 04/03/18 16:27 haloperidol [From Haldol] AdvReac Severe Verified 04/03/18 16:27 risperidone [From Risperdal] AdvReac Severe Verified 04/03/18 16:27 ziprasidone [From Geodon] AdvReac Severe Verified 04/03/18 16:27 History of Present Illness: 43 yo gentleman here for detox from alcohol - also smoking THC/K-2. No seizures but does have black outs- was found 'face down' yesterday and brought to [facility] ED and treated for nose trauma and elevated BGM - brought in paperwork showing BGM = 500 - he states he was treated with insulin. Does not remember how he got to the ED. Head CT done there showed no intracranial hemorrhage. This is one of several attempts at detox, last here for detox - he cannot remember if he went anywhere else after that. Exam Limitations: Clinical Condition - Ebola screening Have you traveled outside of the country in the last 21 days: No (N) Have you had contact with anyone from an Ebola affected area: No Have you been sick,other than usual withdrawal symptoms: No Do you have a fever: No - Review of Systems Constitutional: Loss of Appetite, Malaise, Changes in sleep, Weakness EENT: reports: Blurred Vision, Other Respiratory: reports: No Symptoms reported Cardiac: reports: No Symptoms Reported GI: reports: Poor Appetite, Poor Fluid Intake, Indigestion, Abdominal cramping : reports: Burning Musculoskeletal: reports: Back Pain Integumentary: reports: Dryness Neuro: reports: Tremors Endocrine: reports: No Symptoms Reported Hematology: reports: No Symptoms Reported Psychiatric: reports: Judgement Intact, Mood/Affect Appropiate, Anxious Other Systems: Reviewed and Negative Patient History - Patient Medical History Hx Anemia: No Hx Asthma: No Hx Chronic Obstructive Pulmonary Disease (COPD): No Hx Cancer: No Hx Cardiac Disorders: No Hx Congestive Heart Failure: No Hx Hypertension: Yes Hx Hypercholesterolemia: No Hx Pacemaker: No HX Cerebrovascular Accident: No Hx Seizures: No Hx Dementia: No Hx Diabetes: Yes Hx Gastrointestinal Disorders: No Hx Liver Disease: No Hx Genitourinary Disorders: No Hx Sexually Transmitted Disorders: No Hx Renal Disease (ESRD): No Hx Thyroid Disease: No Hx Human Immunodeficiency Virus (HIV): No Hx Hepatitis C: No Hx Depression: Yes (on meds) Hx Suicide Attempt: No Hx Bipolar Disorder: No Hx Schizophrenia: Yes (hospitalized in past- can't remember when) - Patient Surgical History Past Surgical History: Yes Hx Neurologic Surgery: No Hx Cataract Extraction: No Hx Cardiac Surgery: No Hx Lung Surgery: Yes (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 ) Hx Breast Surgery: No Hx Breast Biopsy: No Hx Abdominal Surgery: No Hx Appendectomy: No Hx Cholecystectomy: No Hx Genitourinary Surgery: No Hx Orthopedic Surgery: No Anesthesia Reaction: No - PPD History Previous Implant?: Yes Documented Results: Negative w/proof Implanted On Prior [facility] Admission?: Yes Date: 12/05/17 Results: 0mm PPD to be Administered?: No - Reproductive History Patient is a Female of Child Bearing Age (11 -55 yrs old): No (male) - Smoking Cessation Smoking history: Current every day smoker Have you smoked in the past 12 months: Yes Aproximately how many cigarettes per day: 10 Hx Chewing Tobacco Use: No Initiated information on smoking cessation: Yes 'Breaking Loose' booklet given: 08/13/18 - Substance & Tx. History Hx Alcohol Use: Yes Hx Substance Use: Yes Substance Use Type: Alcohol, Cocaine, Marijuana Hx Substance Use Treatment: Yes (detox, rehab) - Substances Abused alcohol Route: Oral Frequency: Daily Amount used: three 40 oz beer Age of first use: 19 Date of Last Use: 08/13/18 K-2 Route: Smoking Frequency: Daily Amount used: 1 joint Age of first use: 40 Date of Last Use: 08/12/18 Family Disease History - Family Disease History Family Disease History: Other: Father (does not know), Mother (does not know), Sister (one - no contact), Son (one age 20 - healthy) Admission Physical Exam S - Vital Signs Vital Signs: Vital Signs - 24 hr 08/13/18 13:04 Temperature 98.6 F Pulse Rate 109 H Respiratory 19 Rate Blood Pressure 137/79 - Physical General Appearance: Yes: Nourished, Appropriately Dressed, Moderate Distress, Tremorous, Irritable, Anxious HEENTM: Yes: EOMI, Hearing grossly Normal, Normocephalic, Normal Voice, Pharynx Normal, Other (nose slightly swollen, erythema, scabbing from fall) Respiratory: Yes: Normal Breath Sounds, No Respiratory Distress Neck: Yes: No masses,lesions,Nodules, Supple Breast: Yes: Breast Exam Deferred Cardiology: Yes: Regular Rhythm, Regular Rate Abdominal: Yes: Flat Genitourinary: Yes: Frequency Back: Yes: Normal Inspection Musculoskeletal: Yes: full range of Motion, Gait Steady Extremities: Yes: Normal Inspection, Non-Tender Neurological: Yes: Fully Oriented, Alert, Motor Strength 5/5, Normal Mood/Affect , Normal Response Integumentary: Yes: Normal Color, Dry, Warm Lymphatic: Yes: Within Normal Limits - Diagnostic (1) Alcohol dependence with uncomplicated withdrawal Current Visit: Yes Status: Chronic (2) Type 2 diabetes mellitus with hyperglycemia Current Visit: Yes Status: Chronic Qualifiers: Diabetes mellitus group home insulin use: with group home use Qualified Code( s): E11.65 - Type 2 diabetes mellitus with hyperglycemia; Z79.4 - care home ( current) use of insulin (3) Marijuana dependence Current Visit: Yes Status: Chronic (4) Head trauma Current Visit: Yes Status: Acute Qualifiers: Encounter type: subsequent encounter Qualified Code(s): S09.90XD - Unspecified injury of head, subsequent encounter Comment: head CT negative done at [facility] Cleared [facility] - [facility]ox or Rehab [facility] Level of Care: Medically Managed Detox Regimen/Protocol: Librium [facility] Breath Alcohol Content Breath Alcohol Content: 0.140 Urine Drug Screen - Results Drug Screen Negative: No Urine Drug Screen Results: THC-Marijuana, BZO-Benzodiazepines Inpatient Rehab Admission - Rehab Decision to Admit Inpatient rehab admission?: No
[2018-08-13] MEDS ORDERED: MAGNESIUM HYDROX 2400MG/30ML ORAL SUSPENSION 30 ML CUP PO PRN (13:35)
[2018-08-13] MEDS ORDERED: BISMUTH SUBSALICYLATE 524 MG/30 ML UD PO PRN (13:35)
[2018-08-13] MEDS ORDERED: METHOCARBAMOL 500 MG TABLET PO PRN (13:35)
[2018-08-13] MEDS ORDERED: ACETAMINOPHEN 325 MG TABLET (FP) PO PRN (13:35)
[2018-08-13] MEDS ORDERED: MAG HYDROX/AL HYDROX/SIMETH 30 ML UNIT-DOSE CUP PO PRN (13:35)
[2018-08-13] MEDS ORDERED: MAGNESIUM CITRATE 300 ML BOTTLE PO PRN (13:35)
[2018-08-13] MEDS ORDERED: MENTHOL/PHENOL 1 EACH UD MM PRN (13:35)
[2018-08-13] MEDS ORDERED: LISINOPRIL 20 MG TABLET (FP) PO ONE (13:45)
[2018-08-13] MEDS ORDERED: chlordiazePOXIDE HCL 25 MG CAPSULE PO ONE (15:00)
[2018-08-13] MEDS: NICOTINE 21 MG/24 HOURS TOPICAL PATCH TD SCH (20:29)
[2018-08-13] MEDS: INSULIN SLIDING SCALE (NOVOLOG) 1 VIAL SQ SCH (20:30)
[2018-08-13] MEDS: chlordiazePOXIDE HCL 25 MG CAPSULE PO SCH (20:32)
[2018-08-13] MEDS: metFORMIN HCL 500 MG TABLET (FP) PO SCH (20:50)
[2018-08-13] MEDS: LISINOPRIL 20 MG TABLET (FP) PO SCH (20:51)
[2018-08-13] MEDS: INSULIN (LEVEMIR) 100 UNITS/ML UNITS SQ SCH (20:51)
[2018-08-13] MEDS: chlordiazePOXIDE HCL 25 MG CAPSULE PO PRN (20:52)
[2018-08-14] MEDS: metFORMIN HCL 500 MG TABLET (FP) PO SCH ×3 (00:06→22:43)
[2018-08-14] MEDS: INSULIN (LEVEMIR) 100 UNITS/ML UNITS SQ SCH ×3 (00:09→22:42)
[2018-08-14] MEDS: chlordiazePOXIDE HCL 25 MG CAPSULE PO SCH ×5 (00:10→22:43)
[2018-08-14] MEDS: INSULIN SLIDING SCALE (NOVOLOG) 1 VIAL SQ SCH ×5 (00:14→22:39)
[2018-08-14] MEDS: THIAMINE HCL 100 MG TABLET (FP) PO SCH ×2 (00:16→22:43)
[2018-08-14] MEDS: chlordiazePOXIDE HCL 25 MG CAPSULE PO PRN (00:43)
[2018-08-14] MEDS: hydrOXYzine PAMOATE 25 MG CAPSULE (FP) PO PRN (00:44)
--- NOTE | 2018-08-14 08:51 | CONSULT ---
[facility] Psychiatric Consult - Data Date of interview: 08/14/18 Admission source: [facility] Identifying data: Patient is a 43 y/o male known to [facility] for due to previous Detox admissions and treament. He is single, unemployed, father of a boy residing in a penitentiary on [facility] Substance Abuse History: He has a chronic hostory oif substance use disorder, ETOH , crack/cocaine, Ke and nicotine dependence. He has a history of black out spells, no seizure, he fell on the ground yesterday and sustained minor inujry over his nose. Refer to addiction counselor note for more detailed chronological drug history. He is currently seeking rehab admission Medical History: Medical history os significant for essential HTN and type 2 DM. 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 He had counteless inpatient psychiatric howe admissions in psychiatric facilities mainly @ [facility]. His most recent psychiatric hospitalization was last month @ [facility] where he stayed for one month. past medciated with Abilify maintena, Trazodone, cogentin and Denio carbonate. He acknowledged non compliance with his after care treatments. he was treated with inj depot neuroleptic Abilify maintena doasage unknown, but was treated during hois last psychiatric admission with Abilify 20 mg po daily which he felt was effective in controlling his psychiatric symptoms. he denies prior suicide attempst, he claimed that he occasionally heard the voice of his mother telling him to hurt himself. he later said that she is a B--- and ignored her voice. he denies intent or plan to harm self or others Physical/Sexual Abuse/Trauma History: Denied Additional Comment: Hitory of trouble with the law, prior arrests for DUI Mental Status Exam - Mental Status Exam Alert and Oriented to: Place, Person Cognitive Function: Grossly Intact Patient Appearance: Unkempt, Disheveled Mood: Irritable Affect: Constricted Patient Behavior: Impulsive, Cooperative Speech Pattern: Pressured Voice Loudness: Moderately Loud Thought Process: Intact Thought Disorder: Being Controlled Hallucinations: Auditory Suicidal Ideation: Denies Homicidal Ideation: Denies Insight/Judgement: Poor Sleep: Fair Appetite: Good Muscle strength/Tone: Normal Gait/Station: Normal Psychiatric Findings - Problem List (Perkins 1, 2,3) (1) Schizophrenia in full remission with history of multiple episodes Current Visit: Yes Status: Acute (2) Alcohol dependence Current Visit: No Status: Acute Qualifiers: Substance use status: uncomplicated Qualified Code(s): F10.20 - Alcohol dependence, uncomplicated (3) Substance induced mood disorder Current Visit: No Status: Acute (4) Cannabis dependence Current Visit: No Status: Chronic (5) HTN (hypertension) Current Visit: No Status: Chronic Qualifiers: Hypertension type: essential hypertension Qualified Code(s): I10 - Essential (primary) hypertension (6) Nicotine dependence Current Visit: No Status: Chronic Qualifiers: Nicotine product type: cigarettes Substance use status: uncomplicated Qualified Code(s): F17.210 - Nicotine dependence, cigarettes, uncomplicated (7) Paranoid schizophrenia Current Visit: No Status: Chronic (8) Type 2 diabetes mellitus without complications Current Visit: No Status: Chronic Qualifiers: Diabetes mellitus usp insulin use: with archives specialist use Qualified Code( s): E11.9 - Type 2 diabetes mellitus without complications; 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 psychoeducation. Sleep hygiene. Abilify 20 mg po daily. Cogentin 1 mg po daily. Monitor and asses response to treatment
[2018-08-14] MEDS ORDERED: ARIPiprazole 20 MG TABLET PO SCH (10:00)
[2018-08-14] MEDS: BENZTROPINE MESYLATE 1 MG TABLET (FP) PO SCH (10:36)
[2018-08-14] MEDS: NICOTINE 21 MG/24 HOURS TOPICAL PATCH TD SCH (10:38)
[2018-08-14] MEDS: LISINOPRIL 20 MG TABLET (FP) PO SCH (10:38)
[2018-08-14] MEDS: PRENATAL VITAMINS W/ FOLIC ACID TABLET (FP) PO SCH (10:38)
[2018-08-14 11:08] LABS: ALBUMIN 3.9 g/dl (3.4-5.0); ALK PHOS 122 U/L (45-117); ANION GAP 8 MMOL/L (8-16); BLOOD UREA NITROGEN 10 mg/dL (7-18); CALCIUM 8.3 mg/dL (8.5-10.1); CHLORIDE 98 mmol/L (98-107); CO2 30 mmol/L (21-32); CREATININE 0.8 mg/dL (0.55-1.3); GLUCOSE,RANDOM 133 mg/dL (74-106); POTASSIUM 3.7 mmol/L (3.5-5.1); SGOT/AST 36 U/L (15-37); SGPT/ALT 51 U/L (13-61); SODIUM 136 mmol/L (136-145); TOT PROT 7.8 g/dl (6.4-8.2)
[2018-08-14 11:17] LABS: HEMATOCRIT 38.2 % (35.4-49); HEMOGLOBIN 13.4 GM/dL (11.7-16.9); MCH 29.8 pg (25.7-33.7); MCHC 35.1 g/dl (32.0-35.9); MEAN CELL VOLUME 84.8 fl (80-96); MEAN PLT VOLUME 7.3 fl (7.5-11.1); PLATELET COUNT 156 K/MM3 (134-434); RBC 4.51 M/mm3 (4.00-5.60); RDW 14.9 % (11.9-15.9); WHITE BLOOD COUNT 3.7 K/mm3 (4.0-10.0)
[2018-08-14] MEDS ORDERED: INSULIN (LEVEMIR) 100 UNITS/ML UNITS SQ ONE (11:54)
[2018-08-14] MEDS: ARIPiprazole 10 MG TABLET PO SCH (12:26)
--- NOTE | 2018-08-14 13:48 | PN ---
[facility] CIWA - CIWA Score Nausea/Vomitin-Mild Nausea/No Vomiting Muscle Tremors: 3 Anxiety: 3 Agitation: 3 Paroxysmal Sweats: 1-Minimal Palms Moist Orientation: 1-Uncertain about Date Tacttile Disturbances: 0-None Auditory Disturbances: 0-None Visual Disturbances: 0-None Headache: 1-Very Mild CIWA-Ar Total Score: 13 S Progress Note (SOAP) Subjective: tremor sweating restlessness poorn concentration Objective: 08/14/18 13:47 Vital Signs Temperature 98.6 F 08/14/18 13:43 Pulse Rate 115 H 08/14/18 13:43 Respiratory Rate 20 08/14/18 13:43 Blood Pressure 145/92 08/14/18 13:43 O2 Sat by Pulse Oximetry (%) Laboratory Last Values WBC 3.7 K/mm3 (4.0-10.0) L 08/14/18 07:35 RBC 4.51 M/mm3 (4.00-5.60) 08/14/18 07:35 Hgb 13.4 GM/dL (11.7-16.9) 08/14/18 07:35 Hct 38.2 % (35.4-49) 08/14/18 07:35 MCV 84.8 fl (80-96) 08/14/18 07:35 MCH 29.8 pg (25.7-33.7) 08/14/18 07:35 MCHC 35.1 g/dl (32.0-35.9) 08/14/18 07:35 RDW 14.9 % (11.9-15.9) 08/14/18 07:35 Plt Count 156 K/MM3 (134-434) D 08/14/18 07:35 MPV 7.3 fl (7.5-11.1) L 08/14/18 07:35 Sodium 136 mmol/L (136-145) 08/14/18 07:35 Potassium 3.7 mmol/L (3.5-5.1) 08/14/18 07:35 Chloride 98 mmol/L (98-107) 08/14/18 07:35 Carbon Dioxide 30 mmol/L (21-32) 08/14/18 07:35 Anion Gap 8 MMOL/L (8-16) 08/14/18 07:35 BUN 10 mg/dL (7-18) 08/14/18 07:35 Creatinine 0.8 mg/dL (0.55-1.3) 08/14/18 07:35 Creat Clearance w eGFR 106.01 (>60) 08/14/18 07:35 POC Glucometer 178 UNITS (80-120) 08/14/18 11:28 Random Glucose 133 mg/dL (74-106) H 08/14/18 07:35 Calcium 8.3 mg/dL (8.5-10.1) L 08/14/18 07:35 Total Bilirubin 1.0 mg/dL (0.2-1) 08/14/18 07:35 AST 36 U/L (15-37) 08/14/18 07:35 ALT 51 U/L (13-61) 08/14/18 07:35 Alkaline Phosphatase 122 U/L (45-117) H 08/14/18 07:35 Total Protein 7.8 g/dl (6.4-8.2) 08/14/18 07:35 Albumin 3.9 g/dl (3.4-5.0) 08/14/18 07:35 RPR Titer Nonreactive (NONREACTIVE) 08/14/18 07:35 lab noted Assessment: 08/14/18 13:48 withdrawal sx Plan: continue detox
--- NOTE | 2018-08-14 14:05 | PN ---
[facility] CIWA - CIWA Score Nausea/Vomitin-No Nausea/No Vomiting Muscle Tremors: 4-Moderate,w/Arms Extend Anxiety: 2 Agitation: 3 Paroxysmal Sweats: 1-Minimal Palms Moist Orientation: 2-Disoriented Date<2 days Tacttile Disturbances: 0-None Auditory Disturbances: 0-None Visual Disturbances: 0-None Headache: 1-Very Mild CIWA-Ar Total Score: 13 BHS Progress Note (SOAP) Subjective: tremor sweating trouble sleep at night Objective: 08/15/18 10:54 Vital Signs Temperature 97.4 F L 08/15/18 09:20 Pulse Rate 131 H 08/15/18 09:20 Respiratory Rate 18 08/15/18 09:20 Blood Pressure 133/94 08/15/18 09:20 O2 Sat by Pulse Oximetry (%) Laboratory Last Values WBC 3.7 K/mm3 (4.0-10.0) L 08/14/18 07:35 RBC 4.51 M/mm3 (4.00-5.60) 08/14/18 07:35 Hgb 13.4 GM/dL (11.7-16.9) 08/14/18 07:35 Hct 38.2 % (35.4-49) 08/14/18 07:35 MCV 84.8 fl (80-96) 08/14/18 07:35 MCH 29.8 pg (25.7-33.7) 08/14/18 07:35 MCHC 35.1 g/dl (32.0-35.9) 08/14/18 07:35 RDW 14.9 % (11.9-15.9) 08/14/18 07:35 Plt Count 156 K/MM3 (134-434) D 08/14/18 07:35 MPV 7.3 fl (7.5-11.1) L 08/14/18 07:35 Sodium 136 mmol/L (136-145) 08/14/18 07:35 Potassium 3.7 mmol/L (3.5-5.1) 08/14/18 07:35 Chloride 98 mmol/L (98-107) 08/14/18 07:35 Carbon Dioxide 30 mmol/L (21-32) 08/14/18 07:35 Anion Gap 8 MMOL/L (8-16) 08/14/18 07:35 BUN 10 mg/dL (7-18) 08/14/18 07:35 Creatinine 0.8 mg/dL (0.55-1.3) 08/14/18 07:35 Creat Clearance w eGFR 106.01 (>60) 08/14/18 07:35 POC Glucometer 307 UNITS (80-120) 08/15/18 05:13 Random Glucose 133 mg/dL (74-106) H 08/14/18 07:35 Calcium 8.3 mg/dL (8.5-10.1) L 08/14/18 07:35 Total Bilirubin 1.0 mg/dL (0.2-1) 08/14/18 07:35 AST 36 U/L (15-37) 08/14/18 07:35 ALT 51 U/L (13-61) 08/14/18 07:35 Alkaline Phosphatase 122 U/L (45-117) H 08/14/18 07:35 Total Protein 7.8 g/dl (6.4-8.2) 08/14/18 07:35 Albumin 3.9 g/dl (3.4-5.0) 08/14/18 07:35 RPR Titer Nonreactive (NONREACTIVE) 08/14/18 07:35 lab noted Assessment: 08/15/18 10:55 withdrawal sx Plan: continue detox
[2018-08-14] MEDS: MELATONIN 5 MG TABLETS PO PRN (22:45)
[2018-08-15] MEDS: chlordiazePOXIDE HCL 25 MG CAPSULE PO PRN (02:10)
[2018-08-15] MEDS: chlordiazePOXIDE HCL 25 MG CAPSULE PO SCH ×2 (05:15→10:38)
[2018-08-15] MEDS: INSULIN SLIDING SCALE (NOVOLOG) 1 VIAL SQ SCH ×4 (07:02→22:13)
[2018-08-15] MEDS: hydrOXYzine PAMOATE 25 MG CAPSULE (FP) PO PRN ×2 (08:17→22:16)
[2018-08-15] MEDS: PRENATAL VITAMINS W/ FOLIC ACID TABLET (FP) PO SCH (10:36)
[2018-08-15] MEDS: metFORMIN HCL 500 MG TABLET (FP) PO SCH ×2 (10:37→16:56)
[2018-08-15] MEDS: LISINOPRIL 20 MG TABLET (FP) PO SCH (10:37)
[2018-08-15] MEDS: BENZTROPINE MESYLATE 1 MG TABLET (FP) PO SCH (10:37)
[2018-08-15] MEDS: INSULIN (LEVEMIR) 100 UNITS/ML UNITS SQ SCH ×2 (10:37→17:01)
[2018-08-15] MEDS: NICOTINE 21 MG/24 HOURS TOPICAL PATCH TD SCH (10:39)
[2018-08-15] MEDS: ARIPiprazole 10 MG TABLET PO SCH (10:42)
[2018-08-15] MEDS: chlordiazePOXIDE HCL 10 MG CAPSULE PO SCH ×2 (16:59→22:13)
[2018-08-15] MEDS ORDERED: chlordiazePOXIDE HCL 10 MG CAPSULE PO PRN (17:00)
[2018-08-15] MEDS: THIAMINE HCL 100 MG TABLET (FP) PO SCH (22:13)
[2018-08-15] MEDS: MELATONIN 5 MG TABLETS PO PRN (22:15)
[2018-08-16] MEDS: chlordiazePOXIDE HCL 10 MG CAPSULE PO SCH ×3 (05:45→17:13)
[2018-08-16] MEDS ORDERED: INSULIN SLIDING SCALE (NOVOLOG) 1 VIAL SQ ONE ×3 (06:10→17:09)
[2018-08-16] MEDS ORDERED: INSULIN (LEVEMIR) 100 UNITS/ML UNITS SQ ONE (06:11)
[2018-08-16] MEDS: INSULIN SLIDING SCALE (NOVOLOG) 1 VIAL SQ SCH ×4 (06:18→22:06)
[2018-08-16] MEDS: metFORMIN HCL 500 MG TABLET (FP) PO SCH ×2 (06:19→17:13)
[2018-08-16] MEDS: INSULIN (LEVEMIR) 100 UNITS/ML UNITS SQ SCH ×2 (06:19→17:14)
--- NOTE | 2018-08-16 09:36 | PN ---
[facility] CIWA - CIWA Score Nausea/Vomitin-No Nausea/No Vomiting Muscle Tremors: 2 Anxiety: 1-Mildly Anxious Agitation: 2 Paroxysmal Sweats: 1-Minimal Palms Moist Orientation: 2-Disoriented Date<2 days Tacttile Disturbances: 0-None Auditory Disturbances: 0-None Visual Disturbances: 0-None Headache: 1-Very Mild CIWA-Ar Total Score: 9 S Progress Note (SOAP) Subjective: mild tremor and sweating otherwise doing ok reporting that he is feeling better every day tolerate food and fluid much better Objective: 08/15/18 09:38 Vital Signs Temperature 96.3 F L 08/16/18 09:22 Pulse Rate 114 H 08/16/18 09:22 Respiratory Rate 18 08/16/18 09:22 Blood Pressure 126/84 08/16/18 09:22 O2 Sat by Pulse Oximetry (%) Laboratory Last Values WBC 3.7 K/mm3 (4.0-10.0) L 08/14/18 07:35 RBC 4.51 M/mm3 (4.00-5.60) 08/14/18 07:35 Hgb 13.4 GM/dL (11.7-16.9) 08/14/18 07:35 Hct 38.2 % (35.4-49) 08/14/18 07:35 MCV 84.8 fl (80-96) 08/14/18 07:35 MCH 29.8 pg (25.7-33.7) 08/14/18 07:35 MCHC 35.1 g/dl (32.0-35.9) 08/14/18 07:35 RDW 14.9 % (11.9-15.9) 08/14/18 07:35 Plt Count 156 K/MM3 (134-434) D 08/14/18 07:35 MPV 7.3 fl (7.5-11.1) L 08/14/18 07:35 Sodium 136 mmol/L (136-145) 08/14/18 07:35 Potassium 3.7 mmol/L (3.5-5.1) 08/14/18 07:35 Chloride 98 mmol/L (98-107) 08/14/18 07:35 Carbon Dioxide 30 mmol/L (21-32) 08/14/18 07:35 Anion Gap 8 MMOL/L (8-16) 08/14/18 07:35 BUN 10 mg/dL (7-18) 08/14/18 07:35 Creatinine 0.8 mg/dL (0.55-1.3) 08/14/18 07:35 Creat Clearance w eGFR 106.01 (>60) 08/14/18 07:35 POC Glucometer 267 UNITS (80-120) 08/16/18 05:44 Random Glucose 133 mg/dL (74-106) H 08/14/18 07:35 Calcium 8.3 mg/dL (8.5-10.1) L 08/14/18 07:35 Total Bilirubin 1.0 mg/dL (0.2-1) 08/14/18 07:35 AST 36 U/L (15-37) 08/14/18 07:35 ALT 51 U/L (13-61) 08/14/18 07:35 Alkaline Phosphatase 122 U/L (45-117) H 08/14/18 07:35 Total Protein 7.8 g/dl (6.4-8.2) 08/14/18 07:35 Albumin 3.9 g/dl (3.4-5.0) 08/14/18 07:35 RPR Titer Nonreactive (NONREACTIVE) 08/14/18 07:35 lab noted 08/15/18 09:39 Assessment: 08/15/18 09:39 withdrawal sx 08/15/18 09:39 Plan: continue detox
--- NOTE | 2018-08-16 09:41 | PN ---
[facility] CIWA - CIWA Score Nausea/Vomitin-No Nausea/No Vomiting Muscle Tremors: 1-None Visible, but [place] Anxiety: 1-Mildly Anxious Agitation: 1-Slight > Activity Paroxysmal Sweats: 1-Minimal Palms Moist Orientation: 0-Oriented Tacttile Disturbances: 0-None Auditory Disturbances: 0-None Visual Disturbances: 0-None Headache: 1-Very Mild CIWA-Ar Total Score: 5 BHS Progress Note (SOAP) Subjective: feeling better mild tremor less sweating well-rested Objective: 08/16/18 09:42 Vital Signs Temperature 96.3 F L 08/16/18 09:22 Pulse Rate 114 H 08/16/18 09:22 Respiratory Rate 18 08/16/18 09:22 Blood Pressure 126/84 08/16/18 09:22 O2 Sat by Pulse Oximetry (%) Laboratory Last Values WBC 3.7 K/mm3 (4.0-10.0) L 08/14/18 07:35 RBC 4.51 M/mm3 (4.00-5.60) 08/14/18 07:35 Hgb 13.4 GM/dL (11.7-16.9) 08/14/18 07:35 Hct 38.2 % (35.4-49) 08/14/18 07:35 MCV 84.8 fl (80-96) 08/14/18 07:35 MCH 29.8 pg (25.7-33.7) 08/14/18 07:35 MCHC 35.1 g/dl (32.0-35.9) 08/14/18 07:35 RDW 14.9 % (11.9-15.9) 08/14/18 07:35 Plt Count 156 K/MM3 (134-434) D 08/14/18 07:35 MPV 7.3 fl (7.5-11.1) L 08/14/18 07:35 Sodium 136 mmol/L (136-145) 08/14/18 07:35 Potassium 3.7 mmol/L (3.5-5.1) 08/14/18 07:35 Chloride 98 mmol/L (98-107) 08/14/18 07:35 Carbon Dioxide 30 mmol/L (21-32) 08/14/18 07:35 Anion Gap 8 MMOL/L (8-16) 08/14/18 07:35 BUN 10 mg/dL (7-18) 08/14/18 07:35 Creatinine 0.8 mg/dL (0.55-1.3) 08/14/18 07:35 Creat Clearance w eGFR 106.01 (>60) 08/14/18 07:35 POC Glucometer 267 UNITS (80-120) 08/16/18 05:44 Random Glucose 133 mg/dL (74-106) H 08/14/18 07:35 Calcium 8.3 mg/dL (8.5-10.1) L 08/14/18 07:35 Total Bilirubin 1.0 mg/dL (0.2-1) 08/14/18 07:35 AST 36 U/L (15-37) 08/14/18 07:35 ALT 51 U/L (13-61) 08/14/18 07:35 Alkaline Phosphatase 122 U/L (45-117) H 08/14/18 07:35 Total Protein 7.8 g/dl (6.4-8.2) 08/14/18 07:35 Albumin 3.9 g/dl (3.4-5.0) 08/14/18 07:35 RPR Titer Nonreactive (NONREACTIVE) 08/14/18 07:35 lab noted Assessment: 08/16/18 09:42 mild withdrawal sx Plan: continue detox
[2018-08-16] MEDS: BENZTROPINE MESYLATE 1 MG TABLET (FP) PO SCH (10:47)
[2018-08-16] MEDS: PRENATAL VITAMINS W/ FOLIC ACID TABLET (FP) PO SCH (10:47)
[2018-08-16] MEDS: ARIPiprazole 10 MG TABLET PO SCH (10:48)
[2018-08-16] MEDS: LISINOPRIL 20 MG TABLET (FP) PO SCH (10:51)
[2018-08-16] MEDS: NICOTINE 21 MG/24 HOURS TOPICAL PATCH TD SCH (10:51)
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
[2018-08-16] MEDS: MELATONIN 5 MG TABLETS PO PRN (22:05)
[2018-08-16] MEDS: traZODone HCL 100 MG TABLET (FP) PO SCH (22:06)
[2018-08-16] MEDS: hydrOXYzine PAMOATE 25 MG CAPSULE (FP) PO PRN (22:06)
[2018-08-16] MEDS: THIAMINE HCL 100 MG TABLET (FP) PO SCH (22:06)
[2018-08-17] MEDS: chlordiazePOXIDE HCL 10 MG CAPSULE PO SCH (05:46)
[2018-08-17] MEDS: hydrOXYzine PAMOATE 25 MG CAPSULE (FP) PO PRN ×2 (05:47→13:49)
[2018-08-17] MEDS: metFORMIN HCL 500 MG TABLET (FP) PO SCH ×2 (06:05→16:37)
[2018-08-17] MEDS: INSULIN (LEVEMIR) 100 UNITS/ML UNITS SQ SCH ×2 (07:14→16:38)
[2018-08-17] MEDS: INSULIN SLIDING SCALE (NOVOLOG) 1 VIAL SQ SCH ×4 (08:00→21:05)
[2018-08-17] MEDS: ARIPiprazole 10 MG TABLET PO SCH (10:26)
[2018-08-17] MEDS: BENZTROPINE MESYLATE 1 MG TABLET (FP) PO SCH (10:26)
[2018-08-17] MEDS: PRENATAL VITAMINS W/ FOLIC ACID TABLET (FP) PO SCH (10:26)
[2018-08-17] MEDS: LISINOPRIL 20 MG TABLET (FP) PO SCH (10:26)
[2018-08-17] MEDS: NICOTINE 21 MG/24 HOURS TOPICAL PATCH TD SCH (10:26)
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
--- NOTE | 2018-08-17 15:17 | HP ---
[facility] Rehab Assess/Revision - Admission History Admitted to Rehab from: [facility] Date of Admission to Rehab: 08/17/18 - Vital signs Vital Signs: Vital Signs Period Temp Pulse Resp BP Sys/Chandler Pulse Ox Last 24 Hr 95.8 F-99.0 F 76-118 18-18 103-128/60-90 - Findings Detox History & Physical reviewed: Yes Concur with findings: Yes Comments/Additional Findings: transferred from detox to rehab admission as per protocol Inpatient Rehab Admission - Rehab Decision to Admit Inpatient rehab admission?: Yes - Initial Determination Are CD services needed?: Yes Free of communicable disease: Yes Not in need of hospitalization: Yes - Rehab Admission Criteria Previous failed treatment: Yes Poor recovery environment: Yes Comorbidities: Yes Lacks judgement: No Patient is meeting Inpatient Rehab admission criteria:: Yes
[2018-08-17] MEDS ORDERED: INSULIN (NOVOLOG) ASPART 100 UNITS/ML 10ML VIAL ONE ×2 (16:19→20:33)
[2018-08-17] MEDS: IBUPROFEN 400 MG TABLET (FP) PO PRN (16:40)
[2018-08-17] MEDS: NICOTINE POLACRILEX 4 MG GUM BUC PRN ×2 (17:42→21:05)
[2018-08-17] MEDS: THIAMINE HCL 100 MG TABLET (FP) PO SCH (21:03)
[2018-08-17] MEDS: traZODone HCL 100 MG TABLET (FP) PO SCH (21:03)
[2018-08-17] MEDS: MELATONIN 5 MG TABLETS PO PRN (21:04)
[2018-08-18] MEDS: NICOTINE POLACRILEX 4 MG GUM BUC PRN ×3 (04:06→17:45)
[2018-08-18] MEDS: metFORMIN HCL 500 MG TABLET (FP) PO SCH ×2 (06:04→16:45)
[2018-08-18] MEDS: INSULIN (LEVEMIR) 100 UNITS/ML UNITS SQ SCH ×2 (06:07→16:44)
[2018-08-18] MEDS ORDERED: INSULIN (NOVOLOG) ASPART 100 UNITS/ML 10ML VIAL ONE ×3 (07:27→16:07)
[2018-08-18] MEDS: INSULIN SLIDING SCALE (NOVOLOG) 1 VIAL SQ SCH ×4 (07:28→21:10)
[2018-08-18] MEDS: IBUPROFEN 400 MG TABLET (FP) PO PRN (09:41)
[2018-08-18] MEDS: PRENATAL VITAMINS W/ FOLIC ACID TABLET (FP) PO SCH (09:41)
[2018-08-18] MEDS: LISINOPRIL 20 MG TABLET (FP) PO SCH (09:41)
[2018-08-18] MEDS: NICOTINE 21 MG/24 HOURS TOPICAL PATCH TD SCH (09:41)
[2018-08-18] MEDS: ARIPiprazole 10 MG TABLET PO SCH (09:41)
[2018-08-18] MEDS: BENZTROPINE MESYLATE 1 MG TABLET (FP) PO SCH (09:41)
[2018-08-18] MEDS: hydrOXYzine PAMOATE 25 MG CAPSULE (FP) PO PRN (09:43)
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
[2018-08-18] MEDS: BACITRACIN 0.9 GM PACKET TP SCH ×2 (14:24→21:12)
[2018-08-18] MEDS: traZODone HCL 100 MG TABLET (FP) PO SCH (21:11)
[2018-08-18] MEDS: THIAMINE HCL 100 MG TABLET (FP) PO SCH (21:11)
[2018-08-18] MEDS: MELATONIN 5 MG TABLETS PO PRN (21:12)
[2018-08-19] MEDS: metFORMIN HCL 500 MG TABLET (FP) PO SCH ×2 (07:07→16:31)
[2018-08-19] MEDS ORDERED: INSULIN (NOVOLOG) ASPART 100 UNITS/ML 10ML VIAL ONE ×3 (07:09→16:25)
[2018-08-19] MEDS: INSULIN (LEVEMIR) 100 UNITS/ML UNITS SQ SCH ×2 (07:13→16:28)
[2018-08-19] MEDS: INSULIN SLIDING SCALE (NOVOLOG) 1 VIAL SQ SCH ×4 (08:05→21:07)
[2018-08-19] MEDS: ARIPiprazole 10 MG TABLET PO SCH (09:33)
[2018-08-19] MEDS: LISINOPRIL 20 MG TABLET (FP) PO SCH (09:33)
[2018-08-19] MEDS: PRENATAL VITAMINS W/ FOLIC ACID TABLET (FP) PO SCH (09:33)
[2018-08-19] MEDS: BENZTROPINE MESYLATE 1 MG TABLET (FP) PO SCH (09:33)
[2018-08-19] MEDS: hydrOXYzine PAMOATE 25 MG CAPSULE (FP) PO PRN (09:34)
[2018-08-19] MEDS: IBUPROFEN 400 MG TABLET (FP) PO PRN (09:34)
[2018-08-19] MEDS: NICOTINE 21 MG/24 HOURS TOPICAL PATCH TD SCH (09:35)
[2018-08-19] MEDS: BACITRACIN 0.9 GM PACKET TP SCH ×2 (09:37→21:08)
[2018-08-19] MEDS: NICOTINE POLACRILEX 4 MG GUM BUC PRN ×3 (09:37→23:59)
[2018-08-19] MEDS: traZODone HCL 100 MG TABLET (FP) PO SCH (21:07)
[2018-08-19] MEDS: THIAMINE HCL 100 MG TABLET (FP) PO SCH (21:07)
[2018-08-19] MEDS: MELATONIN 5 MG TABLETS PO PRN (21:08)
--- NOTE | 2018-08-19 21:26 | PN ---
[facility] Progress Note Note: I was called to see pt for finger stick of 39mg/dl, Pt c/o sweating, dizziness, and lightheadedness. Finger stick rechecked is 60mg/dl. Pt in no respiratory distress, alert and oriented x3. No s/s of hypo/hyperglycemia noted at this time. Encourage to drink juice. Nursing staff instructed to recheck finger stick in an hour. Continue to monitor pt clinically, hold insulin for tonight. Vital Signs Temperature 97.3 F L 08/19/18 06:38 Pulse Rate 103 H 08/19/18 10:00 Respiratory Rate 18 08/19/18 06:38 Blood Pressure 130/74 08/19/18 10:00 O2 Sat by Pulse Oximetry (%) Laboratory Last Values WBC 3.7 K/mm3 (4.0-10.0) L 08/14/18 07:35 RBC 4.51 M/mm3 (4.00-5.60) 08/14/18 07:35 Hgb 13.4 GM/dL (11.7-16.9) 08/14/18 07:35 Hct 38.2 % (35.4-49) 08/14/18 07:35 MCV 84.8 fl (80-96) 08/14/18 07:35 MCH 29.8 pg (25.7-33.7) 08/14/18 07:35 MCHC 35.1 g/dl (32.0-35.9) 08/14/18 07:35 RDW 14.9 % (11.9-15.9) 08/14/18 07:35 Plt Count 156 K/MM3 (134-434) D 08/14/18 07:35 MPV 7.3 fl (7.5-11.1) L 08/14/18 07:35 Sodium 136 mmol/L (136-145) 08/14/18 07:35 Potassium 3.7 mmol/L (3.5-5.1) 08/14/18 07:35 Chloride 98 mmol/L (98-107) 08/14/18 07:35 Carbon Dioxide 30 mmol/L (21-32) 08/14/18 07:35 Anion Gap 8 MMOL/L (8-16) 08/14/18 07:35 BUN 10 mg/dL (7-18) 08/14/18 07:35 Creatinine 0.8 mg/dL (0.55-1.3) 08/14/18 07:35 Creat Clearance w eGFR 106.01 (>60) 08/14/18 07:35 POC Glucometer 60 UNITS (80-120) 08/19/18 20:57 Random Glucose 133 mg/dL (74-106) H 08/14/18 07:35 Calcium 8.3 mg/dL (8.5-10.1) L 08/14/18 07:35 Total Bilirubin 1.0 mg/dL (0.2-1) 08/14/18 07:35 AST 36 U/L (15-37) 08/14/18 07:35 ALT 51 U/L (13-61) 08/14/18 07:35 Alkaline Phosphatase 122 U/L (45-117) H 08/14/18 07:35 Total Protein 7.8 g/dl (6.4-8.2) 08/14/18 07:35 Albumin 3.9 g/dl (3.4-5.0) 08/14/18 07:35 RPR Titer Nonreactive (NONREACTIVE) 08/14/18 07:35
[2018-08-20] MEDS ORDERED: INSULIN (NOVOLOG) ASPART 100 UNITS/ML 10ML VIAL ONE ×4 (05:13→16:51)
[2018-08-20] MEDS: NICOTINE POLACRILEX 4 MG GUM BUC PRN ×3 (05:33→17:59)
[2018-08-20] MEDS: metFORMIN HCL 500 MG TABLET (FP) PO SCH ×2 (06:13→16:49)
[2018-08-20] MEDS: IBUPROFEN 400 MG TABLET (FP) PO PRN (06:15)
[2018-08-20] MEDS: INSULIN SLIDING SCALE (NOVOLOG) 1 VIAL SQ SCH ×4 (06:17→21:03)
[2018-08-20] MEDS: INSULIN (LEVEMIR) 100 UNITS/ML UNITS SQ SCH ×2 (08:25→16:49)
[2018-08-20] MEDS: PRENATAL VITAMINS W/ FOLIC ACID TABLET (FP) PO SCH (09:47)
[2018-08-20] MEDS: BENZTROPINE MESYLATE 1 MG TABLET (FP) PO SCH (09:47)
[2018-08-20] MEDS: LISINOPRIL 20 MG TABLET (FP) PO SCH (09:47)
[2018-08-20] MEDS: NICOTINE 21 MG/24 HOURS TOPICAL PATCH TD SCH (09:47)
[2018-08-20] MEDS: ARIPiprazole 10 MG TABLET PO SCH (09:48)
[2018-08-20] MEDS: BACITRACIN 0.9 GM PACKET TP SCH ×2 (09:49→21:03)
--- NOTE | 2018-08-20 15:41 | PN ---
Psychiatric Progress Note Vital Signs: Vital Signs Period Temp Pulse Resp BP Sys/Chandler Pulse Ox Last 24 Hr 97.6 F-98.1 F 98-113 17-20 102-148/66-94 Date of Session: 08/20/18 Chief Complaint:: " I still have problem sleeping at night. I need a little more trazodone ". HPI: Patient is doing well except for complaint of refractory insomnia and episodic anxiety symptoms. This is a follow-up encounter to address insomnia. ROS: Unremarkable. Current Medications: Active Medications Generic Name Dose Route Start Last Admin Trade Name Freq PRN Reason Stop Dose Admin Acetaminophen 650 mg 08/13/18 13:35 08/19/18 16:32 Tylenol - PO 650 mg Q6H PRN Administration PAIN LEVEL 4 - 6 Al Hydroxide/Mg Hydroxide 30 ml 08/13/18 13:35 Mylanta Oral Suspension - PO Q6H PRN DYSPEPSIA Aripiprazole 20 mg 08/14/18 10:00 08/20/18 09:48 Abilify PO 20 mg DAILY SO Administration Bacitracin 0.9 gm 08/18/18 14:00 08/20/18 09:49 Bacitracin - TP 08/25/18 13:59 Not Given BID SO Benztropine Mesylate 1 mg 08/14/18 10:00 08/20/18 09:47 Cogentin - PO 1 mg DAILY SO Administration Bismuth Subsalicylate 524 mg 08/13/18 13:35 Pepto-Bismol - PO Q1H PRN DIARRHEA Ibuprofen 400 mg 08/13/18 13:35 08/20/18 06:15 Motrin - PO 400 mg Q6H PRN Administration PAIN LEVEL 1 - 3 Insulin Aspart 1 vial 08/13/18 16:30 08/20/18 11:59 Novolog Vial Sliding Scale - SQ 6 units ACHS SO Administration Protocol Insulin Detemir 30 units 08/15/18 16:30 08/20/18 08:25 Levemir Vial SQ 30 units BID@0700,1630 SO Administration Lisinopril 40 mg 08/13/18 14:00 08/20/18 09:47 Prinivil PO 40 mg DAILY SO Administration Magnesium Citrate 300 ml 08/13/18 13:35 Citroma - PO Q48H PRN CONSTIPATION Magnesium Hydroxide 30 ml 08/13/18 13:35 Milk Of Magnesia - PO PRN PRN CONSTIPATION Melatonin 5 mg 08/13/18 13:35 08/19/18 21:08 Melatonin PO 5 mg HS PRN Administration INSOMNIA Metformin HCl 1,000 mg 08/15/18 16:30 08/20/18 06:13 Glucophage - PO 1,000 mg BID@0700,1630 SO Administration Nicotine 21 mg 08/13/18 13:45 08/20/18 09:47 Nicoderm Patch - TD 21 mg DAILY SO Administration Nicotine Polacrilex 4 mg 08/17/18 10:27 08/20/18 12:23 Nicorette Gum - BUC 4 mg Q2H PRN Administration NICOTINE REPLACEMENT RX Multivit/Folic Acid/Iron 1 tab 08/14/18 10:00 08/20/18 09:47 Vitamins (Sjr) - PO 1 tab DAILY SO Administration Thiamine HCl 100 mg 08/13/18 22:00 08/19/18 21:07 Vitamin B1 - PO 100 mg HS SO Administration Trazodone HCl 100 mg 08/16/18 22:00 08/19/18 21:07 Desyrel - PO 100 mg HS SO Administration Trazodone is increased to 150 mg po hs. Medication(s) Change(s): Trazodone is raised to 150 mg po hs. Patient is, again , reminded of the risk of priapism. No report of adverse effects. Mr Connell agrees with the continuation of trazodone and requested addition of hydroxyzine to the regimen (anxiety). Vistaril 25 mg po q 4 hours prn : ordered (side effects/benefits reviewed). Discussed with nurse Rebecca Gore. Current Side Effect: No Lab tests ordered: No Lab tests reviewed: Yes Provider note:: Chart reviewed. Met with the patient. 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 Patient is noted as pleasant, decently groomed, appropriate and cooperative. He complains of his inability to stay asleep and the occurrence of intermittent symptoms of anxiety. Appetite is well preserved. Patient shows no evidence of psychosis. No acute delusion is elicited at this time. No hallucinations. Mr Connell states that he feels comfortable on the unit. " I feel much better than before ". Impulse control remains adequate. Improvement is sustained. Sleep hygiene discussed. Trazodone dose re-adjusted. Patient provided his consent (verbal). Stable mental status. Continue aripriprazole. Total face to face time:: 25 Mental Status Exam - Mental Status Exam Alert and Oriented to: Time, Place, Person Cognitive Function: Good Patient Appearance: Well Groomed Mood: Apprehensive (mildly anxious), Hopeful Affect: Appropriate, Normal Range Patient Behavior: Cooperative Speech Pattern: Clear, Appropriate Voice Loudness: Normal Thought Process: Goal Oriented Thought Disorder: Not Present Hallucinations: Denies Suicidal Ideation: Denies Homicidal Ideation: Denies Insight/Judgement: Fair Sleep: Poorly, Difficulty falling asleep Appetite: Good Muscle strength/Tone: Normal Gait/Station: Normal Psychiatric Treatment Plan - Problem List (1) Paranoid schizophrenia Current Visit: Yes Comment: . (2) Alcohol dependence Current Visit: Yes Qualifiers: Substance use status: uncomplicated Qualified Code(s): F10.20 - Alcohol dependence, uncomplicated Comment: . (3) Cannabis dependence Current Visit: Yes Comment: . (4) Nicotine dependence Current Visit: Yes Qualifiers: Nicotine product type: cigarettes Substance use status: uncomplicated Qualified Code(s): F17.210 - Nicotine dependence, cigarettes, uncomplicated Comment: . (5) Substance induced mood disorder Current Visit: Yes Comment: . (6) Insomnia Current Visit: Yes Comment: .
[2018-08-20] MEDS: MELATONIN 5 MG TABLETS PO PRN (21:02)
[2018-08-20] MEDS: THIAMINE HCL 100 MG TABLET (FP) PO SCH (21:03)
[2018-08-20] MEDS ORDERED: traZODone HCL 50 MG TABLET (FP) PO SCH (22:00)
[2018-08-20] MEDS ORDERED: traZODone HCL 150 MG TABLET PO SCH (22:00)
[2018-08-21] MEDS: NICOTINE POLACRILEX 4 MG GUM BUC PRN ×4 (00:31→14:40)
[2018-08-21] MEDS: hydrOXYzine PAMOATE 25 MG CAPSULE (FP) PO PRN ×3 (04:39→14:39)
[2018-08-21] MEDS: metFORMIN HCL 500 MG TABLET (FP) PO SCH ×2 (06:21→16:46)
[2018-08-21 06:38] VITALS: BP 127/81; PULSE 95; TEMP 97.9
[2018-08-21] MEDS: INSULIN (LEVEMIR) 100 UNITS/ML UNITS SQ SCH ×2 (07:42→16:52)
[2018-08-21] MEDS: INSULIN SLIDING SCALE (NOVOLOG) 1 VIAL SQ SCH ×3 (07:43→16:51)
[2018-08-21] MEDS ORDERED: INSULIN (NOVOLOG) ASPART 100 UNITS/ML 10ML VIAL ONE ×3 (07:45→16:48)
[2018-08-21] MEDS: ARIPiprazole 10 MG TABLET PO SCH (09:36)
[2018-08-21] MEDS: PRENATAL VITAMINS W/ FOLIC ACID TABLET (FP) PO SCH (09:36)
[2018-08-21] MEDS: LISINOPRIL 20 MG TABLET (FP) PO SCH (09:36)
[2018-08-21] MEDS: BENZTROPINE MESYLATE 1 MG TABLET (FP) PO SCH (09:36)
[2018-08-21] MEDS: BACITRACIN 0.9 GM PACKET TP SCH (09:37)
[2018-08-21] MEDS: NICOTINE 21 MG/24 HOURS TOPICAL PATCH TD SCH (09:39)
[2018-08-21] MEDS ORDERED: hydrOXYzine PAMOATE 50 MG CAPSULE (FP) PO PRN (16:33)
--- NOTE | 2018-08-21 16:37 | PN ---
S Progress Note Note: Called by nursing staff on behalf of patient requesting increase in Vistaril dosage from 25 mg po Q6hrs to 50 mg po Q4hrs citing"Vistatil helps me"
--- NOTE | 2018-08-21 21:27 | PN ---
[facility] Progress Note Note: Met w/ patient earlier and states leaving. Patient is alert and oriented w/ steady gait. Encouraged to remain in rehab to combat potential extended withdrawal symptoms and obtain the psycho-social preparation for return to the community. States I feel fine and I'm going back to my retirement. States no prescriptions needed. Patient w/ hx of alcohol, marijuana, K2 use disorder; DM Completed detox for alcohol use and has been in rehab since 08/17/18. Laboratory Last Values WBC 3.7 K/mm3 (4.0-10.0) L 08/14/18 07:35 RBC 4.51 M/mm3 (4.00-5.60) 08/14/18 07:35 Hgb 13.4 GM/dL (11.7-16.9) 08/14/18 07:35 Hct 38.2 % (35.4-49) 08/14/18 07:35 MCV 84.8 fl (80-96) 08/14/18 07:35 MCH 29.8 pg (25.7-33.7) 08/14/18 07:35 MCHC 35.1 g/dl (32.0-35.9) 08/14/18 07:35 RDW 14.9 % (11.9-15.9) 08/14/18 07:35 Plt Count 156 K/MM3 (134-434) D 08/14/18 07:35 MPV 7.3 fl (7.5-11.1) L 08/14/18 07:35 Sodium 136 mmol/L (136-145) 08/14/18 07:35 Potassium 3.7 mmol/L (3.5-5.1) 08/14/18 07:35 Chloride 98 mmol/L (98-107) 08/14/18 07:35 Carbon Dioxide 30 mmol/L (21-32) 08/14/18 07:35 Anion Gap 8 MMOL/L (8-16) 08/14/18 07:35 BUN 10 mg/dL (7-18) 08/14/18 07:35 Creatinine 0.8 mg/dL (0.55-1.3) 08/14/18 07:35 Creat Clearance w eGFR 106.01 (>60) 08/14/18 07:35 POC Glucometer 266 UNITS (80-120) 08/21/18 16:46 Random Glucose 133 mg/dL (74-106) H 08/14/18 07:35 Calcium 8.3 mg/dL (8.5-10.1) L 08/14/18 07:35 Total Bilirubin 1.0 mg/dL (0.2-1) 08/14/18 07:35 AST 36 U/L (15-37) 08/14/18 07:35 ALT 51 U/L (13-61) 08/14/18 07:35 Alkaline Phosphatase 122 U/L (45-117) H 08/14/18 07:35 Total Protein 7.8 g/dl (6.4-8.2) 08/14/18 07:35 Albumin 3.9 g/dl (3.4-5.0) 08/14/18 07:35 RPR Titer Nonreactive (NONREACTIVE) 08/14/18 07:35 Labs reviewed. Discharged AMA.
== END 2018-08-21 17:25 | disposition left against medical advice (07) | DRG 894 ==
LOC: YASAS 11:37 → Y3N 16:37 → Y5N 08-17 12:40
PROVIDERS: ADMIT Surgery; ATTEND Neuromusculoskeletal Medicine & OMM
PROC: HZ2ZZZZ Detoxification Services for Substance Abuse Treatment (ICD-10-PCS; 2018-08-13)
PROC: HZ42ZZZ Group Counseling for Substance Abuse Treatment, Cognitive-Behavioral (ICD-10-PCS; principal; 2018-08-17)
DX: F10.20 Alcohol dependence, uncomplicated (principal); F12.20 Cannabis dependence, uncomplicated; F17.210 Nicotine dependence, cigarettes, uncomplicated; F19.24 Other psychoactive substance dependence with psychoactive substance-induced mood disorder; F20.9 Schizophrenia, unspecified; F32.9 Major depressive disorder, single episode, unspecified; G47.00 Insomnia, unspecified; I10 Essential (primary) hypertension; E11.9 Type 2 diabetes mellitus without complications; Z79.84 Long term (current) use of oral hypoglycemic drugs; S09.92XD Unspecified injury of nose, subsequent encounter; Z91.81 History of falling; Z88.8 Allergy status to other drugs, medicaments and biological substances; Z59.0 Homelessness
CPT/HCPCS: 36415; 80053; 82962; 85027; 86593

== ENCOUNTER 2019-06-14 03:52 | Inpatient (IN) | payer MEDICARE, OTHER ==
[2019-06-14 04:21] VITALS: BMI 22.4
[2019-06-14] MEDS ORDERED: IBUPROFEN 400 MG TABLET (FP) PO PRN (08:14)
[2019-06-14] MEDS ORDERED: BISMUTH SUBSALICYLATE 262 MG/15 ML BTL PO PRN (08:14)
[2019-06-14] MEDS ORDERED: MAG HYDROX/AL HYDROX/SIMETH 30 ML UNIT-DOSE CUP PO PRN (08:14)
[2019-06-14] MEDS ORDERED: ACETAMINOPHEN 325 MG TABLET (FP) PO PRN ×2 (08:14)
[2019-06-14] MEDS ORDERED: MENTHOL/PHENOL 1 EACH UD MM PRN (08:14)
[2019-06-14] MEDS ORDERED: chlordiazePOXIDE HCL 25 MG CAPSULE PO PRN (08:14)
[2019-06-14] MEDS ORDERED: MAGNESIUM HYDROX 2400MG/30ML ORAL SUSPENSION 30 ML CUP PO PRN (08:14)
[2019-06-14] MEDS ORDERED: MAGNESIUM CITRATE 300 ML BOTTLE PO PRN (08:14)
--- NOTE | 2019-06-14 09:29 | HP ---
CIWA Score Nausea/Vomitin-Mild Nausea/No Vomiting Muscle Tremors: 3 Anxiety: 3 Agitation: 3 Paroxysmal Sweats: 3 Orientation: 0-Oriented Tacttile Disturbances: 0-None Auditory Disturbances: 0-None Visual Disturbances: 0-None Headache: 0-None Present CIWA-Ar Total Score: 13 - Admission Criteria OASAS Guidelines: Admission for Medically Managed Detox: Requires at least one of the followin. CIWA greater than 12 2. Seizures within the past 24 hours 3. Delirium tremens within the past 24 hours 4. Hallucinations within the past 24 hours 5. Acute intervention needed for co occurring medical disorder 6. Acute intervention needed for co occurring psychiatric disorder 7. Severe withdrawal that cannot be handled at a lower level of care (continued vomiting, continued diarrhea, abnormal vital signs) requiring intravenous medication and/or fluids 8. Admitting History and Physical - Admission Chief Complaint: I want to get clean. History of Present Illness: pt is a 44yr old male with a h/o alcohol, cocaine, k2 seeking detox for treatment. History Source: Patient Limitations to Obtaining History: No Limitations - Past Medical History Cardiovascular: Yes: HTN Hepatobiliary: Yes: Hepatitis C Psych: Yes: Schizophrenia - Past Surgical History Past Surgical History: Yes: None - Smoking History Smoking history: Current every day smoker Have you smoked in the past 12 months: Yes Aproximately how many cigarettes per day: 10 - Alcohol/Substance Use Hx Alcohol Use: Yes History of Substance Use: reports: Cocaine, Marijuana Date of Last Use: 06/13/19 - Social History Usual Living Arrangement: Yes: Alone Do you think of yourself as: Straight/Heterosexual ADL: Independent History of Recent Travel: No Admission [facility] Chief Complaint: pt is a 44yr old male with a history of alcohol dependence seeking detox for treatment. Allergies/Adverse Reactions: Allergies Allergy/AdvReac Type Severity Reaction Status Date / Time fluphenazine [From Prolixin] AdvReac Severe Verified 06/14/19 06:41 haloperidol [From Haldol] AdvReac Severe Verified 06/14/19 06:41 risperidone [From Risperdal] AdvReac Severe Verified 06/14/19 06:41 ziprasidone [From Geodon] AdvReac Severe Verified 06/14/19 06:41 Exam Limitations: No Limitations - Ebola screening Have you traveled outside of the country in the last 21 days: No Have you had contact with anyone from an Ebola affected area: No Have you been sick,other than usual withdrawal symptoms: No Do you have a fever: No - Review of Systems Constitutional: Chills, Diaphoresis, Night Sweats, Changes in sleep EENT: reports: No Symptoms Reported, Hearing Loss (VENETIE right ear) Respiratory: reports: Cough Cardiac: reports: No Symptoms Reported GI: reports: Poor Appetite, Poor Fluid Intake : reports: No Symptoms Reported Musculoskeletal: reports: Joint Pain Integumentary: reports: Bruising (on top of foot d/t wearing flip flops), Flushing, Sweating Neuro: reports: Tingling, Tremors Endocrine: reports: Excessive Sweating, Flushing, Intolerance to Cold, Intolerance to Heat Hematology: reports: No Symptoms Reported Psychiatric: reports: Judgement Intact, Mood/Affect Appropiate, Orientated x3, Agitated, Anxious, other (pt takes a monthly injection of abilify which he states he received yesterday) Other Systems: Reviewed and Negative Patient History - Patient Medical History Hx Anemia: No Hx Asthma: No Hx Chronic Obstructive Pulmonary Disease (COPD): No Hx Cancer: No Hx Cardiac Disorders: No Hx Congestive Heart Failure: No Hx Hypertension: Yes Hx Hypercholesterolemia: No Hx Pacemaker: No HX Cerebrovascular Accident: No Hx Seizures: No Hx Dementia: No Hx Diabetes: Yes (metformin 1000mg bid,jenuvia 100 qd, lantus bid 30u) Hx Gastrointestinal Disorders: No Hx Liver Disease: No Hx Genitourinary Disorders: No Hx Sexually Transmitted Disorders: No Hx Renal Disease (ESRD): No Hx Thyroid Disease: No Hx Human Immunodeficiency Virus (HIV): No Hx Hepatitis C: Yes (dx 05/2019) Hx Depression: No Hx Suicide Attempt: No Hx Bipolar Disorder: No Hx Schizophrenia: Yes - Patient Surgical History Past Surgical History: Yes Hx Neurologic Surgery: No Hx Cataract Extraction: No Hx Cardiac Surgery: No Hx Lung Surgery: Yes (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 - Reproductive History Patient : No - Smoking Cessation Smoking history: Current every day smoker Have you smoked in the past 12 months: Yes Aproximately how many cigarettes per day: 10 Cigars Per Day: 0 Hx Chewing Tobacco Use: No Initiated information on smoking cessation: Yes 'Breaking Loose' booklet given: 06/14/19 - Substance & Tx. History Hx Alcohol Use: Yes Hx Substance Use: Yes Substance Use Type: Alcohol, Cocaine Hx Substance Use Treatment: No - Substances abused Alcohol Frequency: Daily Amount used: 1-2 pints Age of first use: 18 Date of last use: 06/13/19 Admission Physical Exam BHS - Vital Signs Vital Signs: Vital Signs - 24 hr 06/14/19 04:18 Temperature 97.2 F L Pulse Rate 110 H Respiratory 18 Rate Blood Pressure 138/93 - Physical General Appearance: Yes: Appropriately Dressed, Moderate Distress, Tremorous, Irritable, Sweating, Anxious HEENTM: Yes: Normal Voice, Nasal Congestion, Rhinorrhea Respiratory: Yes: Lungs Clear, Normal Breath Sounds, No Respiratory Distress Neck: Yes: Within Normal Limits Breast: Yes: Within Normal Limits Cardiology: Yes: Regular Rate, S1, S2, Tachycardia Abdominal: Yes: Non Tender, Flat, Soft Genitourinary: Yes: Within Normal Limits Back: Yes: Normal Inspection Musculoskeletal: Yes: Back pain Extremities: Yes: Normal Capillary Refill, Normal Inspection, Non-Tender, Tremors Neurological: Yes: Fully Oriented, Alert, Normal Response Integumentary: Yes: Normal Color, Diaphoresis Lymphatic: Yes: Within Normal Limits - Diagnostic (1) Insomnia Current Visit: Yes Status: Acute Qualifiers: Insomnia type: primary Qualified Code(s): F51.01 - Primary insomnia Comment: . (2) Schizophrenia in full remission with history of multiple episodes Current Visit: No Status: Acute (3) Substance-induced sleep disorder Current Visit: No Status: Acute (4) Alcohol dependence with uncomplicated withdrawal Current Visit: Yes Status: Chronic (5) Cannabis dependence Current Visit: Yes Status: Chronic Comment: . (6) Diabetes 1.5, managed as type 2 Current Visit: Yes Status: Chronic (7) HTN (hypertension) Current Visit: Yes Status: Chronic Qualifiers: Hypertension type: essential hypertension Qualified Code(s): I10 - Essential (primary) hypertension (8) Nicotine dependence Current Visit: Yes Status: Chronic Qualifiers: Nicotine product type: cigarettes Substance use status: uncomplicated Qualified Code(s): F17.210 - Nicotine dependence, cigarettes, uncomplicated Comment: . (9) Paranoid schizophrenia Current Visit: No Status: Chronic Comment: . (10) Poor dentition Current Visit: Yes Status: Chronic (11) Substance induced mood disorder Current Visit: No Status: Chronic Comment: . 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 Qualified Code( s): E11.65 - Type 2 diabetes mellitus with hyperglycemia; Z79.4 - correction ( current) use of insulin Cleared for Admission S - Detox or Rehab [facility] Level of Care: Medically Managed Detox Regimen/Protocol: Librium Claeared for Rehab Admission: No Breathalyzer - Breathalyzer Breathalyzer: 0 Urine Drug Screen - Test Device Lot number: [id number] Expiration date: 12/27/20 - Control Is test valid?: Yes - Results Drug screen NEGATIVE: No Urine drug screen results: THC-Marijuana, BZO-Benzodiazepines Inpatient Rehab Admission - Rehab Decision to Admit Inpatient rehab admission?: No
[2019-06-14] MEDS: PRENATAL VITAMINS W/ FOLIC ACID TABLET (FP) PO SCH (10:37)
[2019-06-14] MEDS: metFORMIN HCL 500 MG TABLET (FP) PO SCH ×2 (10:37→16:49)
[2019-06-14] MEDS: LISINOPRIL 20 MG TABLET (FP) PO SCH (10:37)
[2019-06-14] MEDS: NICOTINE POLACRILEX 4 MG GUM BUC PRN ×2 (10:38→15:54)
[2019-06-14] MEDS: NICOTINE 21 MG/24 HOURS TOPICAL PATCH TD SCH (10:38)
[2019-06-14] MEDS: chlordiazePOXIDE HCL 25 MG CAPSULE PO SCH ×3 (10:41→22:45)
[2019-06-14] MEDS: INSULIN (LEVEMIR) 100 UNITS/ML UNITS SQ SCH ×2 (12:28→22:45)
--- NOTE | 2019-06-14 13:10 | EKG ---
Test Reason : Blood Pressure : / mmHG Vent. Rate : 087 BPM Atrial Rate : 087 BPM P-R Int : 156 ms QRS Dur : 076 ms QT Int : 354 ms P-R-T Axes : 044 067 066 degrees QTc Int : 425 ms NORMAL SINUS RHYTHM NORMAL ECG WHEN COMPARED WITH ECG OF 03-DEC-2017 20:30, NO SIGNIFICANT CHANGE WAS FOUND Confirmed by JORGE ENGLE MD ([id number]) on 06/14/2019 1:10:05 PM Referred By: Confirmed By:JORGE ENGLE MD
[2019-06-14] MEDS: INSULIN SLIDING SCALE (NOVOLOG) 1 VIAL SQ SCH (17:55)
[2019-06-14] MEDS: THIAMINE HCL 100 MG TABLET (FP) PO SCH (22:45)
[2019-06-15] MEDS: NICOTINE POLACRILEX 4 MG GUM BUC PRN ×2 (02:33→17:19)
[2019-06-15] MEDS: chlordiazePOXIDE HCL 25 MG CAPSULE PO SCH ×4 (05:49→22:11)
[2019-06-15] MEDS: metFORMIN HCL 500 MG TABLET (FP) PO SCH ×2 (07:26→17:14)
[2019-06-15] MEDS: INSULIN SLIDING SCALE (NOVOLOG) 1 VIAL SQ SCH ×3 (07:49→17:15)
[2019-06-15] MEDS: NICOTINE 21 MG/24 HOURS TOPICAL PATCH TD SCH (10:16)
[2019-06-15] MEDS: LISINOPRIL 20 MG TABLET (FP) PO SCH (10:16)
[2019-06-15] MEDS: PRENATAL VITAMINS W/ FOLIC ACID TABLET (FP) PO SCH (10:16)
--- NOTE | 2019-06-15 11:26 | PN ---
S CIWA - CIWA Score Nausea/Vomitin-No Nausea/No Vomiting Muscle Tremors: 3 Anxiety: 3 Agitation: 3 Paroxysmal Sweats: 3 Orientation: 0-Oriented Tacttile Disturbances: 0-None Auditory Disturbances: 0-None Visual Disturbances: 0-None Headache: 0-None Present CIWA-Ar Total Score: 12 BHS Progress Note (SOAP) Subjective: sweats interrupted sleep restless body aches Objective: 06/15/19 11:26 Vital Signs Temperature 97.9 F 06/15/19 10:00 Pulse Rate 107 H 06/15/19 10:00 Respiratory Rate 18 06/15/19 10:00 Blood Pressure 134/76 06/15/19 10:00 O2 Sat by Pulse Oximetry (%) Laboratory Tests 06/14/19 06/14/19 06/14/19 10:35 12:22 16:40 POC Glucometer 473 437 347 06/14/19 06/15/19 21:39 05:46 POC Glucometer 118 250 aaox3 ambulating no acute distress Assessment: 06/15/19 11:26 withdrawals Plan: continue detox increase fluids
[2019-06-15 11:37] LABS: HEMATOCRIT 40.8 % (35.4-49); HEMOGLOBIN 13.9 GM/dL (11.7-16.9); MCH 29.6 pg (25.7-33.7); MEAN PLT VOLUME 8.4 fl (7.5-11.1); PLATELET COUNT 183 K/MM3 (134-434); RBC 4.68 M/mm3 (4.00-5.60); RDW 14.5 % (11.9-15.9); WHITE BLOOD COUNT 3.9 K/mm3 (4.0-10.0)
[2019-06-15 11:42] LABS: BILIRUBIN,TOTAL 0.8 mg/dL (0.2-1); BLOOD UREA NITROGEN 12.5 mg/dL (7-18); CALCIUM 9.3 mg/dL (8.5-10.1); CREATININE 0.9 mg/dL (0.55-1.3); POTASSIUM 4.3 mmol/L (3.5-5.1); TOT PROT 7.9 g/dl (6.4-8.2)
[2019-06-15] MEDS: INSULIN (LEVEMIR) 100 UNITS/ML UNITS SQ SCH ×2 (12:00→22:15)
[2019-06-15] MEDS: MELATONIN 5 MG TABLETS PO PRN (22:11)
[2019-06-15] MEDS: THIAMINE HCL 100 MG TABLET (FP) PO SCH (22:11)
[2019-06-16] MEDS: hydrOXYzine PAMOATE 25 MG CAPSULE (FP) PO PRN ×2 (02:38→08:50)
[2019-06-16] MEDS: METHOCARBAMOL 500 MG TABLET PO PRN (02:38)
[2019-06-16] MEDS: chlordiazePOXIDE HCL 25 MG CAPSULE PO SCH ×4 (06:18→22:19)
[2019-06-16] MEDS: metFORMIN HCL 500 MG TABLET (FP) PO SCH ×2 (06:19→16:52)
[2019-06-16] MEDS: INSULIN (LEVEMIR) 100 UNITS/ML UNITS SQ SCH ×2 (06:22→22:20)
[2019-06-16] MEDS: INSULIN SLIDING SCALE (NOVOLOG) 1 VIAL SQ SCH ×3 (07:54→16:52)
[2019-06-16] MEDS: NICOTINE 21 MG/24 HOURS TOPICAL PATCH TD SCH (09:54)
[2019-06-16] MEDS: LISINOPRIL 20 MG TABLET (FP) PO SCH (09:55)
[2019-06-16] MEDS: PRENATAL VITAMINS W/ FOLIC ACID TABLET (FP) PO SCH (09:55)
--- NOTE | 2019-06-16 12:05 | PN ---
S CIWA - CIWA Score Nausea/Vomitin-No Nausea/No Vomiting Muscle Tremors: 3 Anxiety: 2 Agitation: 2 Paroxysmal Sweats: 2 Orientation: 0-Oriented Tacttile Disturbances: 0-None Auditory Disturbances: 0-None Visual Disturbances: 0-None Headache: 0-None Present CIWA-Ar Total Score: 9 BHS Progress Note (SOAP) Subjective: sweats agitation body aches i need to see psych for my prescriptions Objective: 06/16/19 12:04 Vital Signs Temperature 98.4 F 06/16/19 09:37 Pulse Rate 103 H 06/16/19 09:37 Respiratory Rate 18 06/16/19 09:37 Blood Pressure 113/73 06/16/19 09:37 O2 Sat by Pulse Oximetry (%) Laboratory Tests 06/14/19 06/14/19 06/14/19 10:35 12:22 16:40 WBC RBC Hgb Hct MCV MCH MCHC RDW Plt Count MPV Sodium Potassium Chloride Carbon Dioxide Anion Gap BUN Creatinine Est GFR (CKD-EPI)AfAm Est GFR (CKD-EPI)NonAf POC Glucometer 473 437 347 Random Glucose Calcium Total Bilirubin AST ALT Alkaline Phosphatase Total Protein Albumin RPR Titer 06/14/19 06/15/19 06/15/19 21:39 05:46 08:20 WBC 3.9 L RBC 4.68 Hgb 13.9 Hct 40.8 MCV 87.0 MCH 29.6 MCHC 34.0 RDW 14.5 Plt Count 183 MPV 8.4 D Sodium Potassium Chloride Carbon Dioxide Anion Gap BUN Creatinine Est GFR (CKD-EPI)AfAm Est GFR (CKD-EPI)NonAf POC Glucometer 118 250 Random Glucose Calcium Total Bilirubin AST ALT Alkaline Phosphatase Total Protein Albumin RPR Titer 06/15/19 06/15/19 06/15/19 08:20 08:20 11:55 WBC RBC Hgb Hct MCV MCH MCHC RDW Plt Count MPV Sodium 131 L Potassium 4.3 Chloride 98 Carbon Dioxide 27 Anion Gap 6 L BUN 12.5 Creatinine 0.9 Est GFR (CKD-EPI)AfAm 120.81 Est GFR (CKD-EPI)NonAf 104.24 POC Glucometer 232 Random Glucose 387 H Calcium 9.3 Total Bilirubin 0.8 AST 61 H ALT 106 H Alkaline Phosphatase 108 Total Protein 7.9 Albumin 4.0 RPR Titer Nonreactive 06/15/19 06/16/19 06/16/19 16:53 06:20 11:06 WBC RBC Hgb Hct MCV MCH MCHC RDW Plt Count MPV Sodium Potassium Chloride Carbon Dioxide Anion Gap BUN Creatinine Est GFR (CKD-EPI)AfAm Est GFR (CKD-EPI)NonAf POC Glucometer 346 249 168 Random Glucose Calcium Total Bilirubin AST ALT Alkaline Phosphatase Total Protein Albumin RPR Titer aaox3 ambulating no acute distress Assessment: 06/16/19 12:04 withdrawal sx Plan: continue detox psych ordered
[2019-06-16] MEDS: NICOTINE POLACRILEX 4 MG GUM BUC PRN (12:11)
[2019-06-16] MEDS: guaiFENesin 200 MG/10 ML 10 ML UNIT-DOSE CUPS PO PRN (14:58)
[2019-06-16] MEDS: MELATONIN 5 MG TABLETS PO PRN (22:19)
[2019-06-16] MEDS: THIAMINE HCL 100 MG TABLET (FP) PO SCH (22:19)
[2019-06-17] MEDS ORDERED: chlordiazePOXIDE HCL 10 MG CAPSULE PO PRN
[2019-06-17] MEDS: METHOCARBAMOL 500 MG TABLET PO PRN (02:16)
[2019-06-17] MEDS: NICOTINE POLACRILEX 4 MG GUM BUC PRN ×2 (05:25→12:37)
[2019-06-17] MEDS: chlordiazePOXIDE HCL 10 MG CAPSULE PO SCH ×4 (05:26→22:14)
[2019-06-17] MEDS: metFORMIN HCL 500 MG TABLET (FP) PO SCH ×2 (06:27→17:09)
[2019-06-17] MEDS ORDERED: INSULIN SLIDING SCALE (NOVOLOG) 1 VIAL SQ ONE (08:55)
[2019-06-17] MEDS: INSULIN (LEVEMIR) 100 UNITS/ML UNITS SQ SCH ×2 (08:59→22:14)
[2019-06-17] MEDS: INSULIN SLIDING SCALE (NOVOLOG) 1 VIAL SQ SCH ×3 (09:00→17:09)
[2019-06-17] MEDS: NICOTINE 21 MG/24 HOURS TOPICAL PATCH TD SCH (10:16)
[2019-06-17] MEDS: PRENATAL VITAMINS W/ FOLIC ACID TABLET (FP) PO SCH (10:17)
[2019-06-17] MEDS: LISINOPRIL 20 MG TABLET (FP) PO SCH (10:17)
[2019-06-17] MEDS ORDERED: traZODone HCL 50 MG TABLET (FP) PO PRN (13:50)
--- NOTE | 2019-06-17 14:33 | CONSULT ---
[facility] Psychiatric Consult - Data Date of interview: 06/17/19 Admission source: [facility] Identifying data: Revisit to [facility] and admission to [address] [place] [address] for this 44 y/o male self-referred for detoxification treatment. INGRID issues : alcohol , cocaine, cannabis (K2), nicotine. Patient is single, a father of one homeless (intermediate), unemployed and supported on SSD benefits. Substance Abuse History: Discussed with the patient. Details in current [facility] report as follows : Smoking history: Current every day smoker. Have you smoked in the past 12 months: Yes. Aproximately how many cigarettes per day: 10. Cigars Per Day: 0. Hx Chewing Tobacco Use: No. Initiated information on smoking cessation: Yes. 'Breaking Loose' booklet given: 06/14/19. - Substance & Tx. History. Hx Alcohol Use: Yes. Hx Substance Use: Yes. Substance Use Type : Alcohol, Cocaine. Hx Substance Use Treatment: No. - Substances abused. Alcohol. Frequency: Daily. Amount used: 1-2 pints. Age of first use: 18. Date of last use: 06/13/19 Medical History: Medical profile is remarkable for diabetes mellitus, hepatitis C, hypertension and a history of tracheostomy (reason not known). Psychiatric History: History of multiple psychiatric hospitalizations since first psychiatric meltdown at age 28 (hospitalized at a facility in [place], [place] for auditory hallucinations + paranoid delusions). Patient has been diagnosed with Paranoid Schizophrenia and treated with paliperidone + cogentin. [facility] (monthly injection of Invega Sustenna, dispensed three days ago, as per self- report). Mr Connell is known to several institutions ([facility], [facility], [facility], [facility], [facility], [facility], [facility]). Chronically non-adherent to psychiatric OPD care. Patient admits to a preference for CPEP visits for medications refills at times of crisis. No reported history of suicide attempts. Physical/Sexual Abuse/Trauma History: Not discussed in this session. Patient declines. Additional Comment: Urine drug screen results: THC-Marijuana, BZO- Benzodiazepines. Noted. Mental Status Exam - Mental Status Exam Alert and Oriented to: Time, Place, Person Cognitive Function: Good Patient Appearance: Well Groomed Mood: Hopeful, Euthymic Affect: Appropriate, Normal Range Patient Behavior: Appropriate, Cooperative Speech Pattern: Clear, Appropriate Voice Loudness: Normal Thought Process: Goal Oriented Thought Disorder: Not Present Hallucinations: Denies Suicidal Ideation: Denies Homicidal Ideation: Denies Insight/Judgement: Poor Sleep: Poorly, Difficulty falling asleep Appetite: Good Muscle strength/Tone: Normal Gait/Station: Normal Psychiatric Findings - Problem List ([place] 1, 2,3) (1) Paranoid schizophrenia Current Visit: Yes Status: Chronic Comment: . (2) Alcohol dependence with uncomplicated withdrawal Current Visit: Yes Status: Acute (3) Cannabis dependence Current Visit: Yes Status: Chronic Comment: . (4) Nicotine dependence Current Visit: Yes Status: Chronic Qualifiers: Nicotine product type: cigarettes Substance use status: uncomplicated Qualified Code(s): F17.210 - Nicotine dependence, cigarettes, uncomplicated Comment: . (5) Insomnia Current Visit: Yes Status: Chronic - Initial Treatment Plan Initial Treatment Plan: Psychoeducation. Sleep hygiene. Detoxification in progress. Patient reports that he got his injection of Invega Sustenna on at his intermediate. Confirmation needed. Social work team to follow. Resumed : cogentin 0.5 mg po bid + trazodone 100 mg po hs. Side effects/benefits of bout drugs are discussed with patient. Mr Connell is in agreement with plan of care. Gave his consent (verbal) to MD. Andre.
[2019-06-17] MEDS: guaiFENesin 200 MG/10 ML 10 ML UNIT-DOSE CUPS PO PRN (15:57)
--- NOTE | 2019-06-17 16:29 | PN ---
S CIWA - CIWA Score Nausea/Vomitin-No Nausea/No Vomiting Muscle Tremors: None Anxiety: 2 Agitation: 2 Paroxysmal Sweats: 3 Orientation: 0-Oriented Tacttile Disturbances: 0-None Auditory Disturbances: 0-None Visual Disturbances: 0-None Headache: 0-None Present CIWA-Ar Total Score: 7 BHS Progress Note (SOAP) Subjective: Sweating, Anxious, Interrupted Sleep. Patient reports that withdrawal symptoms are gradually improving. Objective: PATIENT A & O X 3, OBSERVED AMBULATING ON DETOX UNIT UNASSISTED. IN NO ACUTE DISTRESS. 06/17/19 16:30 Vital Signs Temperature 97.9 F 06/17/19 15:31 Pulse Rate 107 H 06/17/19 15:31 Respiratory Rate 171 H 06/17/19 15:31 Blood Pressure 122/60 06/17/19 15:31 O2 Sat by Pulse Oximetry (%) Laboratory Tests 06/14/19 06/14/19 06/14/19 10:35 12:22 16:40 WBC RBC Hgb Hct MCV MCH MCHC RDW Plt Count MPV Sodium Potassium Chloride Carbon Dioxide Anion Gap BUN Creatinine Est GFR (CKD-EPI)AfAm Est GFR (CKD-EPI)NonAf POC Glucometer [phone] Random Glucose Calcium Total Bilirubin AST ALT Alkaline Phosphatase Total Protein Albumin RPR Titer 06/14/19 06/15/19 06/15/19 21:39 05:46 08:20 WBC 3.9 L RBC 4.68 Hgb 13.9 Hct 40.8 MCV 87.0 MCH 29.6 MCHC 34.0 RDW 14.5 Plt Count 183 MPV 8.4 D Sodium Potassium Chloride Carbon Dioxide Anion Gap BUN Creatinine Est GFR (CKD-EPI)AfAm Est GFR (CKD-EPI)NonAf POC Glucometer 118 250 Random Glucose Calcium Total Bilirubin AST ALT Alkaline Phosphatase Total Protein Albumin RPR Titer 06/15/19 06/15/19 06/15/19 08:20 08:20 11:55 WBC RBC Hgb Hct MCV MCH MCHC RDW Plt Count MPV Sodium 131 L Potassium 4.3 Chloride 98 Carbon Dioxide 27 Anion Gap 6 L BUN 12.5 Creatinine 0.9 Est GFR (CKD-EPI)AfAm 120.81 Est GFR (CKD-EPI)NonAf 104.24 POC Glucometer 232 Random Glucose 387 H Calcium 9.3 Total Bilirubin 0.8 AST 61 H ALT 106 H Alkaline Phosphatase 108 Total Protein 7.9 Albumin 4.0 RPR Titer Nonreactive 06/15/19 06/16/19 06/16/19 16:53 06:20 11:06 WBC RBC Hgb Hct MCV MCH MCHC RDW Plt Count MPV Sodium Potassium Chloride Carbon Dioxide Anion Gap BUN Creatinine Est GFR (CKD-EPI)AfAm Est GFR (CKD-EPI)NonAf POC Glucometer [phone] Random Glucose Calcium Total Bilirubin AST ALT Alkaline Phosphatase Total Protein Albumin RPR Titer 06/16/19 06/17/19 06/17/19 16:34 05:29 11:09 WBC RBC Hgb Hct MCV MCH MCHC RDW Plt Count MPV Sodium Potassium Chloride Carbon Dioxide Anion Gap BUN Creatinine Est GFR (CKD-EPI)AfAm Est GFR (CKD-EPI)NonAf POC Glucometer 298 250 256 Random Glucose Calcium Total Bilirubin AST ALT Alkaline Phosphatase Total Protein Albumin RPR Titer 06/17/19 16:25 WBC RBC Hgb Hct MCV MCH MCHC RDW Plt Count MPV Sodium Potassium Chloride Carbon Dioxide Anion Gap BUN Creatinine Est GFR (CKD-EPI)AfAm Est GFR (CKD-EPI)NonAf POC Glucometer 239 Random Glucose Calcium Total Bilirubin AST ALT Alkaline Phosphatase Total Protein Albumin RPR Titer LABS NOTED. Assessment: 06/17/19 16:31 WITHDRAWAL SYMPTOMS. ELEVATED AST LEVEL. ELEVATED ALT LEVEL. Plan: CONTINUE DETOX. INCREASE DAILY ORAL WATER INTAKE.
[2019-06-17] MEDS: BENZTROPINE MESYLATE 0.5 MG TABLET (FP) PO SCH (22:14)
[2019-06-17] MEDS: traZODone HCL 100 MG TABLET (FP) PO SCH (22:14)
[2019-06-17] MEDS: THIAMINE HCL 100 MG TABLET (FP) PO SCH (22:14)
[2019-06-18] MEDS: chlordiazePOXIDE HCL 10 MG CAPSULE PO SCH ×2 (05:53→17:05)
[2019-06-18] MEDS: NICOTINE POLACRILEX 4 MG GUM BUC PRN ×2 (05:55→10:07)
[2019-06-18] MEDS: metFORMIN HCL 500 MG TABLET (FP) PO SCH ×2 (07:06→17:04)
[2019-06-18] MEDS: INSULIN (LEVEMIR) 100 UNITS/ML UNITS SQ SCH ×2 (07:11→22:23)
[2019-06-18] MEDS: INSULIN SLIDING SCALE (NOVOLOG) 1 VIAL SQ SCH ×3 (07:12→16:53)
[2019-06-18] MEDS: NICOTINE 21 MG/24 HOURS TOPICAL PATCH TD SCH (10:05)
[2019-06-18] MEDS: PRENATAL VITAMINS W/ FOLIC ACID TABLET (FP) PO SCH (10:05)
[2019-06-18] MEDS: LISINOPRIL 20 MG TABLET (FP) PO SCH (10:05)
[2019-06-18] MEDS: BENZTROPINE MESYLATE 0.5 MG TABLET (FP) PO SCH ×2 (10:05→22:23)
--- NOTE | 2019-06-18 14:04 | PN ---
S CIWA - CIWA Score Nausea/Vomitin-No Nausea/No Vomiting Muscle Tremors: 3 Anxiety: 1-Mildly Anxious Agitation: 1-Slight > Activity Paroxysmal Sweats: No Perspiration Orientation: 0-Oriented Tacttile Disturbances: 0-None Auditory Disturbances: 0-None Visual Disturbances: 0-None Headache: 0-None Present CIWA-Ar Total Score: 5 BHS Progress Note (SOAP) Subjective: little anxiety feeling better Objective: 06/18/19 14:03 Vital Signs Temperature 97.5 F L 06/18/19 09:41 Pulse Rate 101 H 06/18/19 09:41 Respiratory Rate 06/18/19 09:41 Blood Pressure 125/75 06/18/19 09:41 O2 Sat by Pulse Oximetry (%) aaox3 ambulating no acute distress Assessment: 06/18/19 14:03 mild withdrawals Plan: continue detox
[2019-06-18] MEDS: guaiFENesin 200 MG/10 ML 10 ML UNIT-DOSE CUPS PO PRN (16:34)
[2019-06-18] MEDS: THIAMINE HCL 100 MG TABLET (FP) PO SCH (22:23)
[2019-06-18] MEDS: traZODone HCL 100 MG TABLET (FP) PO SCH (22:23)
[2019-06-19] MEDS ORDERED: chlordiazePOXIDE HCL 10 MG CAPSULE PO ONE (05:00)
[2019-06-19] MEDS: guaiFENesin 200 MG/10 ML 10 ML UNIT-DOSE CUPS PO PRN (05:42)
[2019-06-19] MEDS: NICOTINE POLACRILEX 4 MG GUM BUC PRN (05:43)
[2019-06-19] MEDS: INSULIN (LEVEMIR) 100 UNITS/ML UNITS SQ SCH (05:49)
[2019-06-19 06:56] VITALS: BP 101/66
[2019-06-19] MEDS: INSULIN SLIDING SCALE (NOVOLOG) 1 VIAL SQ SCH (08:26)
--- NOTE | 2019-06-19 09:15 | DS ---
[facility] Detox Discharge Summary Admission Date: 06/14/19 Discharge Date: 06/19/19 - History Present History: Alcohol Dependence, Cannabis Dependence - Physical Exam Results Vital Signs: Vital Signs Temperature 96.6 F L 06/19/19 06:56 Pulse Rate 110 H 06/19/19 06:56 Respiratory Rate 06/19/19 06:56 Blood Pressure 101/66 06/19/19 06:56 O2 Sat by Pulse Oximetry (%) Pertinent Admission Physical Exam Findings: Vital Signs Temperature 96.6 F L 06/19/19 06:56 Pulse Rate 110 H 06/19/19 06:56 Respiratory Rate 06/19/19 06:56 Blood Pressure 101/66 06/19/19 06:56 O2 Sat by Pulse Oximetry (%) Laboratory Tests 06/14/19 06/14/19 06/14/19 10:35 12:22 16:40 WBC RBC Hgb Hct MCV MCH MCHC RDW Plt Count MPV Sodium Potassium Chloride Carbon Dioxide Anion Gap BUN Creatinine Est GFR (CKD-EPI)AfAm Est GFR (CKD-EPI)NonAf POC Glucometer [phone] Random Glucose Calcium Total Bilirubin AST ALT Alkaline Phosphatase Total Protein Albumin RPR Titer 06/14/19 06/15/19 06/15/19 21:39 05:46 08:20 WBC 3.9 L RBC 4.68 Hgb 13.9 Hct 40.8 MCV 87.0 MCH 29.6 MCHC 34.0 RDW 14.5 Plt Count 183 MPV 8.4 D Sodium Potassium Chloride Carbon Dioxide Anion Gap BUN Creatinine Est GFR (CKD-EPI)AfAm Est GFR (CKD-EPI)NonAf POC Glucometer 118 250 Random Glucose Calcium Total Bilirubin AST ALT Alkaline Phosphatase Total Protein Albumin RPR Titer 06/15/19 06/15/19 06/15/19 08:20 08:20 11:55 WBC RBC Hgb Hct MCV MCH MCHC RDW Plt Count MPV Sodium 131 L Potassium 4.3 Chloride 98 Carbon Dioxide 27 Anion Gap 6 L BUN 12.5 Creatinine 0.9 Est GFR (CKD-EPI)AfAm 120.81 Est GFR (CKD-EPI)NonAf 104.24 POC Glucometer 232 Random Glucose 387 H Calcium 9.3 Total Bilirubin 0.8 AST 61 H ALT 106 H Alkaline Phosphatase 108 Total Protein 7.9 Albumin 4.0 RPR Titer Nonreactive 01/06/16/19 06/16/19 16:53 06:20 11:06 WBC RBC Hgb Hct MCV MCH MCHC RDW Plt Count MPV Sodium Potassium Chloride Carbon Dioxide Anion Gap BUN Creatinine Est GFR (CKD-EPI)AfAm Est GFR (CKD-EPI)NonAf POC Glucometer 346 249 168 Random Glucose Calcium Total Bilirubin AST ALT Alkaline Phosphatase Total Protein Albumin RPR Titer 06/16/19 06/17/19 06/17/19 16:34 05:29 11:09 WBC RBC Hgb Hct MCV MCH MCHC RDW Plt Count MPV Sodium Potassium Chloride Carbon Dioxide Anion Gap BUN Creatinine Est GFR (CKD-EPI)AfAm Est GFR (CKD-EPI)NonAf POC Glucometer 298 250 256 Random Glucose Calcium Total Bilirubin AST ALT Alkaline Phosphatase Total Protein Albumin RPR Titer 06/17/19 06/17/19 06/18/19 16:25 21:06 06:20 WBC RBC Hgb Hct MCV MCH MCHC RDW Plt Count MPV Sodium Potassium Chloride Carbon Dioxide Anion Gap BUN Creatinine Est GFR (CKD-EPI)AfAm Est GFR (CKD-EPI)NonAf POC Glucometer 239 118 127 Random Glucose Calcium Total Bilirubin AST ALT Alkaline Phosphatase Total Protein Albumin RPR Titer 06/18/19 06/18/19 06/19/19 11:35 16:30 05:46 WBC RBC Hgb Hct MCV MCH MCHC RDW Plt Count MPV Sodium Potassium Chloride Carbon Dioxide Anion Gap BUN Creatinine Est GFR (CKD-EPI)AfAm Est GFR (CKD-EPI)NonAf POC Glucometer 173 179 92 Random Glucose Calcium Total Bilirubin AST ALT Alkaline Phosphatase Total Protein Albumin RPR Titer aaox3 ambulating no acute distress - Treatment Hospital Course: Detox Protocol Followed, Detoxed Safely, Responded well, Discharged Condition Good, Rehab Referral Accepted - Medication Discharge Medications: Ambulatory Orders Benztropine Mesylate [Cogentin -] 0.5 mg PO BID 12/03/17 traZODone HCL [Trazodone HCl] 100 mg PO DAILY 12/03/17 Insulin Glargine,Hum.rec.anlog [Lantus Solostar PEN -] 30 units SQ BID #1 vial 04/01/18 metFORMIN HCL [Metformin HCl] 1,000 mg PO BID #60 tablet 04/01/18 Lisinopril [Prinivil] 20 mg PO DAILY 06/14/19 Sitagliptin Phosphate [Januvia] 100 mg PO DAILY 06/14/19 - Diagnosis (1) Insomnia Current Visit: Yes Status: Acute Qualifiers: Insomnia type: primary Qualified Code(s): F51.01 - Primary insomnia (2) Schizophrenia in full remission with history of multiple episodes Current Visit: No Status: Acute (3) Substance-induced sleep disorder Current Visit: No Status: Acute (4) Alcohol dependence with uncomplicated withdrawal Current Visit: Yes Status: Acute (5) Cannabis dependence Current Visit: Yes Status: Chronic (6) Diabetes 1.5, managed as type 2 Current Visit: Yes Status: Chronic (7) HTN (hypertension) Current Visit: Yes Status: Chronic Qualifiers: Hypertension type: essential hypertension Qualified Code(s): I10 - Essential (primary) hypertension (8) Nicotine dependence Current Visit: Yes Status: Chronic Qualifiers: Nicotine product type: cigarettes Substance use status: uncomplicated Qualified Code(s): F17.210 - Nicotine dependence, cigarettes, uncomplicated (9) Paranoid schizophrenia Current Visit: Yes Status: Chronic (10) Poor dentition Current Visit: Yes Status: Chronic (11) Substance induced mood disorder Current Visit: No Status: Chronic (12) Type 2 diabetes mellitus with hyperglycemia Current Visit: Yes Status: Chronic Qualifiers: Diabetes mellitus half-way 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
[2019-06-19 12:11] VITALS: PULSE 101; TEMP 96.7
[2019-06-19] MEDS ORDERED: BENZTROPINE MESYLATE 1 MG TABLET PO SCH (12:20)
== END 2019-06-19 09:12 | disposition home or self-care (01) | DRG 897 ==
LOC: YASAS 03:52 → Y6N 05:02
PROVIDERS: ADMIT Allergy & Immunology; ATTEND Allergy & Immunology
PROC: HZ2ZZZZ Detoxification Services for Substance Abuse Treatment (ICD-10-PCS; principal; 2019-06-14)
DX: F10.230 Alcohol dependence with withdrawal, uncomplicated (principal); F19.282 Other psychoactive substance dependence with psychoactive substance-induced sleep disorder; F20.0 Paranoid schizophrenia; F12.20 Cannabis dependence, uncomplicated; F17.210 Nicotine dependence, cigarettes, uncomplicated; F19.24 Other psychoactive substance dependence with psychoactive substance-induced mood disorder; I10 Essential (primary) hypertension; E11.65 Type 2 diabetes mellitus with hyperglycemia; G47.00 Insomnia, unspecified; K08.9 Disorder of teeth and supporting structures, unspecified; R74.0 Nonspecific elevation of levels of transaminase and lactic acid dehydrogenase [LDH]; R00.0 Tachycardia, unspecified; Z79.4 Long term (current) use of insulin; Z79.84 Long term (current) use of oral hypoglycemic drugs; Z88.8 Allergy status to other drugs, medicaments and biological substances; Z59.0 Homelessness
CPT/HCPCS: 36415; 80053; 82962; 85027; 86593; 93005; 93010